=== PATIENT | male | born 1965 | race Caucasian/White ===

== ENCOUNTER 2017-07-14 09:02 | Emergency (ER) | payer OTHER ==
[2017-07-14 09:07] VITALS: BMI 34.2
[2017-07-14] MEDS ORDERED: methylPREDNISolone NA SUCC 125 MG/2 ML VIAL IVPB ONE (10:02)
--- NOTE | 2017-07-14 10:17 | PDOC ---
History of Present Illness - General History Source: Patient Exam Limitations: No Limitations - History of Present Illness Initial Comments: 07/14/17 11:42 The patient is a 52 year old male with a significant PMH of chronic bronchitis, diverticulitis, chronic lower back pain who presents to the emergency department with shortness of breath and cough beginning approximately 1 week ago which worsened this morning. He reports being evaluated at [facility] last week with flu-like symptoms and SOB and was discharged after a Prednisone treatment to some relief. He reports going to work this morning and having increased shortness of breath, which is aggravated by inspiration and minimal exertion, cough, and nausea. He describes his cough as productive of clear sputum. He reports his shortness of breath is similar to his previous bronchitis exacerbations. The patient denies chest pain and dizziness. Denies fever, chills, vomit, diarrhea and constipation. Denies dysuria, frequency, urgency and hematuria. Denies weakness/numbness Allergies: NKDA Family history: Father has extensive cardiac history. Mother of lung CA. Past surgical history: Cholecystectomy. Social history: Occasional alcohol use. No reported cigarette or drug use. PCP: None reported. <Guillermo Novoa - Last Filed: 07/14/17 11:51> <Wen Brooks - Last Filed: 07/14/17 12:57> - General Chief Complaint: Shortness of Breath Stated Complaint: SOB Time Seen by Provider: 07/14/17 09:12 Past History <Guillermo Novoa - Last Filed: 07/14/17 11:51> - Past Medical History COPD: No GI Disorders: Yes (diverticulitis) - Surgical History Cholecystectomy: Yes - Immunization History Immunization Up to Date: Yes - Suicide/Smoking/Psychosocial Hx Smoking Status: No Smoking History: Never smoked Have you smoked in the past 12 months: No Number of Cigarettes Smoked Daily: 0 Hx Alcohol Use: Yes (OCCASIONALLY) Drug/Substance Use Hx: No Substance Use Type: Alcohol Hx Substance Use Treatment: No <Wen Brooks - Last Filed: 07/14/17 12:57> - Past Medical History Allergies/Adverse Reactions: Allergies Allergy/AdvReac Type Severity Reaction Status Date / Time No Known Allergies Allergy Verified 07/14/17 09:07 Home Medications: Ambulatory Orders Oxycodone HCl/Acetaminophen [Percocet 5-325 mg Tablet] 1 tab PO Q6H #6 tablet MDD 6 01/08/16 Review of Systems - Review of Systems Able to Perform ROS?: Yes Comments:: 07/14/17 11:52 GENERAL/CONSTITUTIONAL: No fever or chills. No weakness. HEAD, EYES, EARS, NOSE AND THROAT: No change in vision. No ear pain or discharge. No sore throat. GASTROINTESTINAL: (+) Nausea. No vomiting, diarrhea or constipation. GENITOURINARY: No dysuria, frequency, or change in urination. CARDIOVASCULAR: (+) Shortness of breath. No chest pain RESPIRATORY: (+) Productive cough. No hemoptysis. MUSCULOSKELETAL: No joint pain. No neck pain. SKIN: No rash NEUROLOGIC: No headache, vertigo, loss of consciousness, or change in strength/ sensation. ENDOCRINE: No increased thirst. No abnormal weight change. HEMATOLOGIC/LYMPHATIC: No anemia, easy bleeding, or history of blood clots. ALLERGIC/IMMUNOLOGIC: No hives or skin allergy. <Guillermo Novoa - Last Filed: 07/14/17 11:51> *Physical Exam - Vital Signs Last Vital Signs Temp Pulse Resp BP Pulse Ox 97.7 F 94 H 20 134/73 98 07/14/17 09:04 07/14/17 09:04 07/14/17 09:04 07/14/17 09:04 07/14/17 09:04 - Physical Exam Comments: 07/14/17 11:52 GENERAL: Awake, alert, and fully oriented, in no acute distress HEAD: No signs of trauma EYES: PERRLA, EOMI, sclera anicteric, conjunctiva clear ENT: Auricles normal inspection, hearing grossly normal, nares patent, oropharynx clear without exudates. Moist mucosa NECK: Normal ROM, supple, no lymphadenopathy, JVD, or masses LUNGS: diffuse wheezing with good air movement, and no crackles HEART: Regular rate and rhythm, normal S1 and S2, no murmurs, rubs or gallops ABDOMEN: Soft, nontender, normoactive bowel sounds. No guarding, no rebound. No masses EXTREMITIES: Normal range of motion, no edema. No clubbing or cyanosis. No cords , erythema, or tenderness BACK: No midline spinal tenderness in cervical/thoracic/lumbar region NEUROLOGICAL: Normal speech, cranial nerves intact, negative pronator drift, 5/ 5 strength in all 4 extremities, normal sensation to light touch in all 4 extremities, normal cerebellar exam, normal gait, normal reflexes and tone SKIN: Warm, Dry, normal turgor, no rashes or lesions noted. <Guillermo Novoa - Last Filed: 07/14/17 11:51> - Vital Signs Last Vital Signs Temp Pulse Resp BP Pulse Ox 97.7 F 94 H 20 134/73 98 07/14/17 09:04 07/14/17 09:04 07/14/17 09:04 07/14/17 09:04 07/14/17 09:04 <Wen Brooks - Last Filed: 07/14/17 12:57> Heart Score/ECG Review #1 07/14/17 11:36 Twelve-lead EKG was performed and reviewed by me. Normal sinus rhythm, rate 99. Normal axis and intervals. No ST elevations. Biphasic T waves in lead V5 through V6 <Wen Brooks - Last Filed: 07/14/17 12:57> ED Treatment Course - LABORATORY CBC & Chemistry Diagram: 07/14/17 10:35 07/14/17 10:35 - ADDITIONAL ORDERS Additional order review: 07/14/17 10:35 RBC 5.15 MCV 89.9 MCHC 33.5 RDW 13.2 MPV 9.7 Neutrophils % 87.0 H Lymphocytes % 9.4 D Monocytes % 3.3 L Eosinophils % 0.0 D Basophils % 0.3 - Medications Given in the ED: ED Medications Discontinued Medications Generic Name Dose Route Start Last Admin Trade Name Luis Angel PRN Reason Stop Dose Admin Albuterol/Ipratropium 1 amp 07/14/17 10:15 07/14/17 11:19 Duoneb - NEB 07/14/17 11:01 1 amp Q15M LORIN Administration Methylprednisolone Sodium Succinate 125 mg 07/14/17 10:02 07/14/17 10:42 Solu-Medrol - IVPB 07/14/17 10:03 125 mg ONCE ONE Administration <Guillermo Novoa - Last Filed: 07/14/17 11:51> - LABORATORY CBC & Chemistry Diagram: 07/14/17 10:35 07/14/17 10:35 - RADIOLOGY Radiology Studies Ordered: Category Date Time Status CHEST PA & LAT [RAD] Stat Radiology 07/14/17 09:45 Ordered <Wen Brooks - Last Filed: 07/14/17 12:57> Medical Decision Making - Medical Decision Making 07/14/17 10:17 52-year-old male with a history of bronchitis presents emergency Department with shortness of breath, dry cough stating this is similar to his previous bronchitis exacerbations. Vitals are unremarkable. Exam with diffuse wheezing and good air movement. No increased WOB. Pt was on 40mg prednisone daily last week for similar sxs, had an improvement in sxs and now sxs have returned. Likely bronchitis exacerbation given recent cold sxs and wheezing. Unlikely PE as pt is HDS, not hypoxic with no recent immobility or surgery. WiIl obtain CXR , and get labs including trop/BNP to eval for ACS or CHF. Will also give duonnebs, steroids and reassess 07/14/17 12:50 Pt feels much better post nebs, steroids, dose of azithro. Lungs are clear, sat 99% RA. Will DC with script for prednisone, pt to f/u with PMD tomorrow. I discussed the physical exam findings, ancillary test results and final diagnoses with the patient. I answered all of the patient's questions. The patient was satisfied with the care received and felt comfortable with the discharge plan and treatment plan. The patient will call their primary care physician within 24 hours to arrange follow-up and will return to the Emergency Department with any new, persistent or worsening symptoms. <Wen Brooks - Last Filed: 07/14/17 12:57> *DC/Admit/Observation/Transfer - Attestations Scribe Attestion: 07/14/17 11:52 Documentation prepared by Guillermo Novoa, acting as medical insurance coder for Wen Brooks MD. <Guillermo Novoa - Last Filed: 07/14/17 11:51> - Discharge Dispostion Admit: No - Attestations Physician Attestion: 07/14/17 12:57 I, Dr. Wen Brooks MD, attest that this document has been prepared under my direction and personally reviewed by me in its entirety. I further attest, that it accurately reflects all work, treatment, procedures and medical decision -making performed by me. <Wen Brooks - Last Filed: 07/14/17 12:57> Diagnosis at time of Disposition: Bronchitis - Discharge Dispostion Disposition: HOME Condition at time of disposition: Stable - Referrals Referrals: Van Dailey MD [Non Staff, Medical] - - Patient Instructions Printed Discharge Instructions: DI for Acute Bronchitis Additional Instructions: Take the steroids as prescribed. As discussed, follow-up with your primary care doctor tomorrow. Return to the emergency department if you have any new, worsening or concerning symptoms. - Post Discharge Activity Forms/Work/School Notes: Back to Work
[2017-07-14] MEDS ORDERED: ALBUTEROL SO4 2.5/IPRATROPIUM 0.5 INH SOL 3 ML VIAL.NEB. NEB ONE (10:33)
[2017-07-14] MEDS ORDERED: methylPREDNISolone NA SUCC 125 MG/2 ML VIAL ONE (10:33)
[2017-07-14] MEDS: ALBUTEROL SO4 2.5/IPRATROPIUM 0.5 INH SOL 3 ML VIAL.NEB. NEB SCH ×3 (10:42→11:19)
[2017-07-14 10:46] LABS: BASO % 0.3 % (0-2.0); HEMATOCRIT 46.3 % (35.4-49); HEMOGLOBIN 15.5 GM/dL (11.7-16.9); LYMPH % 9.4 % (8-40); MCH 30.1 pg (25.7-33.7); MCHC 33.5 g/dl (32.0-35.9); MEAN CELL VOLUME 89.9 fl (80-96); MEAN PLT VOLUME 9.7 fl (7.5-11.1); MONO % 3.3 % (3.8-10.2); PLATELET COUNT 245 K/MM3 (134-434); RBC 5.15 M/mm3 (4.00-5.60); RDW 13.2 % (11.9-15.9); WHITE BLOOD COUNT 12.4 K/mm3 (4.0-10.0)
[2017-07-14 11:12] LABS: ALBUMIN 4.2 g/dl (3.4-5.0); ANION GAP 7 (8-16); BLOOD UREA NITROGEN 15 mg/dL (7-18); CALCIUM 8.7 mg/dL (8.5-10.1); CHLORIDE 103 mmol/L (98-107); CO2 29 mmol/L (21-32); CREATININE 0.9 mg/dL (0.7-1.3); GLUCOSE,RANDOM 107 mg/dL (74-106); MAGNESIUM 2.4 mg/dL (1.8-2.4); POTASSIUM 4.2 mmol/L (3.5-5.1); SGOT/AST 18 U/L (15-37); SGPT/ALT 49 U/L (12-78); SODIUM 139 mmol/L (136-145); TOT PROT 7.6 g/dl (6.4-8.2)
[2017-07-14 11:15] LABS: ALK PHOS 83 U/L (45-117); N-TERMINAL BNP 72.79 pg/ml (5-125)
[2017-07-14] MEDS ORDERED: AZITHROMYCIN IVPB 500 MG in DEXTROSE 5%-WATER - 250 ML IVPB ONE (12:36)
[2017-07-14] MEDS ORDERED: AZITHROMYCIN IVPB 250 ML IVPB ONE (12:45)
[2017-07-14 13:55] VITALS: BP 136/80; PULSE 88; TEMP 97.4
== END 2017-07-14 14:06 | disposition home or self-care (01) ==
LOC: JER 09:02
PROC: 3E0F7GC Introduction of Other Therapeutic Substance into Respiratory Tract, Via Natural or Artificial Opening (ICD-10-PCS; principal; 2017-07-14)
PROC: 3E03329 Introduction of Other Anti-infective into Peripheral Vein, Percutaneous Approach (ICD-10-PCS; 2017-07-14)
PROC: 3E0333Z Introduction of Anti-inflammatory into Peripheral Vein, Percutaneous Approach (ICD-10-PCS; 2017-07-14)
DX: J40 Bronchitis, not specified as acute or chronic (principal)
CPT/HCPCS: 36415; 71046-TC-FY; 80053; 83735; 83880; 84484; 85025; 99283-25

== ENCOUNTER 2017-07-29 14:17 | Emergency (ER) | payer OTHER ==
[2017-07-29 14:26] VITALS: BP 119/84; PULSE 100; TEMP 97.6; BMI 34.2
--- NOTE | 2017-07-29 14:27 | PDOC ---
Rapid Medical Evaluation Chief Complaint: Back Pain Medical Evaluation: Allergies Allergy/AdvReac Type Severity Reaction Status Date / Time No Known Allergies Allergy Verified 07/29/17 14:21 07/29/17 14:22 The patient presents with a chief complaint of: [Low back pain for two weeks. Was seen by PMD xray is negative of lumbar spine, on flexaril] I have performed a brief in-person evaluation of this patient. Pertinent physical exam findings: vss, [Low back pain, Spasm, generalized back , ] I have ordered the following: [None] The patient will proceed to the ED for further evaluation. Discharge Disposition - Diagnosis Lower back pain Qualifiers: Chronicity: acute Back pain laterality: bilateral Sciatica presence: without sciatica Qualified Code(s): M54.5 - Low back pain - Referrals Referrals: Van Dailey MD [Primary Care Provider] - - Patient Instructions - Post Discharge Activity
--- NOTE | 2017-07-29 15:05 | PDOC ---
History of Present Illness - General Chief Complaint: Back Pain Stated Complaint: LOWER BACK PAIN Time Seen by Provider: 07/29/17 14:31 History Source: Patient Exam Limitations: No Limitations - History of Present Illness Initial Comments: 07/29/17 16:09 Patient is a 52-year-old male with past medical history of back pain, who presents emergency department today with worsening back spasm. Patient states that he went to his primary care doctor earlier this week due to the pain. He states that they took an x-ray at an outpatient clinic which he said was normal. He was given Flexeril and he has been taking the medication as prescribed. He has had no relief with the Flexeril. Denies trauma at this time. He rates the pain an 8 out of 10 and states that it radiates up his back. Denies pain down the legs, numbness and tingling, saddle anesthesia, bladder or bowel incontinence, fevers. Past History - Past Medical History Allergies/Adverse Reactions: Allergies Allergy/AdvReac Type Severity Reaction Status Date / Time No Known Allergies Allergy Verified 07/29/17 14:21 Home Medications: Ambulatory Orders Albuterol Sulfate Inhaler - [Ventolin HFA Inhaler -] 1 - 2 inh PO Q4H #1 inhaler 07/29/17 Cetirizine HCl [Zyrtec -] 10 mg PO DAILY 07/29/17 Cyclobenzaprine HCl [Flexeril -] 10 mg PO TID 07/29/17 Diazepam [Valium] 5 mg PO HS #7 tablet MDD 1 07/29/17 Ibuprofen 800 mg PO TID #30 tablet 07/29/17 COPD: No GI Disorders: Yes (diverticulitis) - Surgical History Cholecystectomy: Yes - Immunization History Immunization Up to Date: Yes - Suicide/Smoking/Psychosocial Hx Smoking Status: No Smoking History: Never smoked Have you smoked in the past 12 months: No Number of Cigarettes Smoked Daily: 0 Information on smoking cessation initiated: No Hx Alcohol Use: No Drug/Substance Use Hx: No Substance Use Type: Alcohol Hx Substance Use Treatment: No Review of Systems - Review of Systems Able to Perform ROS?: Yes Comments:: 07/29/17 15:55 CONSTITUTIONAL: Absent: fever, chills, diaphoresis, generalized weakness, malaise, loss of appetite HEENT: Absent: rhinorrhea, nasal congestion, throat pain, throat swelling, difficulty swallowing, mouth swelling, ear pain, eye pain, visual Changes CARDIOVASCULAR: Absent: chest pain, loss of consciousness, palpitations, irregular heart rate, peripheral edema RESPIRATORY: Absent: cough, shortness of breath, dyspnea with exertion, orthopnea, wheezing, stridor, hemoptysis GASTROINTESTINAL: Absent: abdominal pain, abdominal distension, nausea, vomiting, diarrhea, constipation, melena, hematochezia GENITOURINARY: Absent: dysuria, frequency, urgency, hesitancy, hematuria, flank pain, genital pain MUSCULOSKELETAL: Absent: myalgia, arthralgia, joint swelling SKIN: Absent: rash, itching, pallor HEMATOLOGIC/IMMUNOLOGIC: Absent: easy bleeding, easy bruising, lymphadenopathy, frequent infections ENDOCRINE: Absent: unexplained weight gain, unexplained weight loss, heat intolerance, cold intolerance NEUROLOGIC: Absent: headache, focal weakness or paresthesias, dizziness, unsteady gait, seizure, mental status changes, bladder or bowel incontinence PSYCHIATRIC: Absent: anxiety, depression, suicidal or homicidal ideation, hallucinations. Is the patient limited Telugu proficient: No *Physical Exam - Vital Signs Last Vital Signs Temp Pulse Resp BP Pulse Ox 97.6 F 100 H 16 119/84 99 07/29/17 14:21 07/29/17 14:21 07/29/17 14:21 07/29/17 14:21 07/29/17 14:21 - Physical Exam Comments: 07/29/17 15:55 GENERAL: Well developed, well nourished. Awake and alert. No acute distress. HEENT: Normocephalic, atraumatic. PERRLA, EOMI. No conjunctival pallor. Sclera are non- icteric. Moist mucous membranes. Oropharynx is clear. NECK: Supple. Full ROM. No JVD. Carotid pulses 2+ and symmetric, without bruits. No thyromegaly. No lymphadenopathy. CARDIOVASCULAR: Regular rate and rhythm. No murmurs, rubs, or gallops. Distal pulses are 2+ and symmetric. PULMONARY: No evidence of respiratory distress. Lungs clear to auscultation bilaterally. No wheezing, rales or rhonchi. ABDOMINAL: Soft. Non-tender. Non-distended. No rebound or guarding. No organomegaly. Normoactive bowel sounds. MUSCULOSKELETAL Normal range of motion at all joints. No bony deformities or tenderness. No CVA tenderness. EXTREMITIES: No cyanosis. No clubbing. No edema. No calf tenderness. SKIN: Warm and dry. Normal capillary refill. No rashes. No jaundice. NEUROLOGICAL: Alert, awake, appropriate. Cranial nerves 2-12 intact. No deficits to light touch and temperature in face, upper extremities and lower extremities. No motor deficits in the in face, upper extremities and lower extremities. Normoreflexic in the upper and lower extremities. Normal speech. Toes are down- going bilaterally. Gait is normal without ataxia. PSYCHIATRIC: Cooperative. Good eye contact. Appropriate mood and affect. Medical Decision Making - Medical Decision Making 07/29/17 15:55 Patient is a 52-year-old male with past medical history of back pain, who presents emergency department today with worsening back spasm. Patient was recently seen by his primary care doctor had an x-ray done which was normal. No neurological deficits today on exam. Strength is intact bilaterally. No red flags on history. We'll treat low back pain at this time and refer patient to orthopedics for further management. Patient understands all discharge instructions and all questions were answered. Return precautions given. *DC/Admit/Observation/Transfer Diagnosis at time of Disposition: Lower back pain Qualifiers: Chronicity: acute Back pain laterality: bilateral Sciatica presence: without sciatica Qualified Code(s): M54.5 - Low back pain - Discharge Dispostion Condition at time of disposition: Stable Admit: No - Prescriptions Prescriptions: Albuterol Sulfate Inhaler - [Ventolin HFA Inhaler -] 1 - 2 inh PO Q4H #1 inhaler Diazepam [Valium] 5 mg PO HS #7 tablet MDD 1 Ibuprofen 800 mg PO TID #30 tablet - Referrals Referrals: Van Dailey MD [Primary Care Provider] - Luc Polanco MD [Staff Physician] - Mac Herrera MD [Staff Physician] - Kristyn Medrano MD [Staff Physician] - - Patient Instructions Printed Discharge Instructions: DI for Low Back Pain Additional Instructions: You have low back pain due to a muscle spasm. Please take ibuprofen 800 mg 3 times a day not to exceed 3000 mg a day. You were also prescribed valium. Take the medication before you go to bed. Do not drive after taking this medication as it may make you sleepy. You may use warm compresses on your back to help with your symptoms. Please follow-up with your primary care doctor. If your symptoms do not resolve in 3-5 days, follow-up with orthopedics. A referral has been provided for you (Sherri/Javier). You were also prescribed an inhaler today. Return to the emergency department if you have worsening back pain, bladder or bowel incontinence, numbness and tingling in her legs, changes in the way you walk, or any new or worsening symptoms. - Post Discharge Activity Forms/Work/School Notes: Back to Work
[2017-07-29] MEDS ORDERED: KETOROLAC TROMETHAMINE 60 MG/2 ML VIAL ONE (15:29)
[2017-07-29] MEDS ORDERED: KETOROLAC TROMETHAMINE 60 MG/2 ML VIAL IM ONE (15:36)
== END 2017-07-29 15:56 | disposition home or self-care (01) ==
LOC: JERFT 14:17
PROC: 3E0233Z Introduction of Anti-inflammatory into Muscle, Percutaneous Approach (ICD-10-PCS; principal; 2017-07-29)
DX: M54.5 Low back pain (principal)
CPT/HCPCS: 99281-25

== ENCOUNTER 2017-11-29 16:59 | Inpatient (IN) | payer OTHER ==
--- NOTE | 2017-11-29 17:09 | PDOC ---
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 Pain started acutely 2 hours after dinner, was initially intermittent but is now constant. Diffuse, sharp, 10/10. Endorses constipation (two BM since symptom onset, usually has daily BM) and subjective fever. Denies any rectal bleeding, emesis, dysuria/hematuria, testicular/penile pain. Tolerating PO intake, however notes decreased appetite 2/2 to symptoms. OTC Ibuprofen has offered minimal relief prompting his visit to the ED. NKDA Surgical: cholecystectomy, tonsillectomy PMD: none- will refer to IM resident clinic Past History - Past Medical History Allergies/Adverse Reactions: Allergies Allergy/AdvReac Type Severity Reaction Status Date / Time No Known Allergies Allergy Verified 11/29/17 17:05 Home Medications: Ambulatory Orders Hydrocodone/Acetaminophen [Vicodin Es 7.5-300 mg Tablet] 7.5 - 325 mg PO Q4H 02/10 Ibuprofen [Motrin -] 800 mg PO PRN 12/01/17 Metaxalone [Metaxall] 800 mg PO DAILY 12/01/17 COPD: No GI Disorders: Yes (diverticulitis) Other medical history: lower back herniated disc - Surgical History Cholecystectomy: Yes - Immunization History Immunization Up to Date: Yes - Suicide/Smoking/Psychosocial Hx Smoking Status: No Smoking History: Never smoked Have you smoked in the past 12 months: No Number of Cigarettes Smoked Daily: 0 Hx Alcohol Use: No Drug/Substance Use Hx: No Substance Use Type: Alcohol Hx Substance Use Treatment: No Review of Systems - Review of Systems Constitutional: Yes: Fever. No: Chills Respiratory: No: Cough, Shortness of Breath Cardiac (ROS): No: Chest Pain, Lightheadedness, Palpitations, Syncope ABD/GI: Yes: Constipated, Nausea, Abdominal cramping. No: Diarrhea, Vomiting, Tarry Stools : No: Burning, Dysuria Musculoskeletal: Yes: Back Pain *Physical Exam - Vital Signs Last Vital Signs Temp Pulse Resp BP Pulse Ox 98 F 128 H 20 133/73 99 11/29/17 17:02 11/29/17 17:02 11/29/17 17:02 11/29/17 17:02 11/29/17 17:02 - Physical Exam General Appearance: Yes: Nourished, Appropriately Dressed HEENT: positive: Normal Voice, Hearing Grossly Normal Neck: positive: Trachea midline, Supple Respiratory/Chest: positive: Lungs Clear, Normal Breath Sounds. negative: Accessory Muscle Use, Labored Respiration, Rapid RR, Crackles, Rales, Wheezing Cardiovascular: positive: S1, S2, Tachycardia. negative: Edema, JVD Gastrointestinal/Abdominal: positive: Other (diffuse abdominal TTP, reducible umbilical hernia, B/L LQ guarding, no rebound) Musculoskeletal: negative: CVA Tenderness (R), CVA Tenderness (L) Extremity: positive: Normal Capillary Refill, Normal Inspection Integumentary: positive: Normal Color, Warm, Diaphoresis Neurologic: positive: Fully Oriented, Alert ED Treatment Course - LABORATORY CBC & Chemistry Diagram: 12/03/17 06:30 12/03/17 06:30 Medical Decision Making - Medical Decision Making 11/29/17 18:05 52 year old male presents to the ED with progressively worsening abdominal pain. Intermittently tachycardic, other VS unremarkable. PE significant for diffuse abdominal tenderness with some peritoneal signs (B/L LQ guarding). Clinical suspicion for acute abdomen including diverticulitis, cholecystitis, SBO (less likely - h/o BM). Will obtain CT abdomen as well as basic labs, Lipase, Latic Acid. General surgery (Dr. Jacobs) in ED, will curbside consult. Pain control with Morphine. IV fluids. Will monitor closely - tachycardia likely 2/2 to pain. Reassess. Patient signed out to Dr. Lundberg (Resident) and under the care of Dr. Hurd ( Attending) *DC/Admit/Observation/Transfer Diagnosis at time of Disposition: Diverticulitis large intestine Qualifiers: Diverticulitis complication: with perforation - Discharge Dispostion Condition at time of disposition: Guarded - Referrals - Patient Instructions - Post Discharge Activity
--- NOTE | 2017-11-29 17:30 | PDOC ---
Attending Attestation - HPI HPI: 11/29/17 19:00 The patient is a 52 year old male with a significant PMH of diverticulitis who presents to the emergency department for evaluation of worsening lower abdominal pain and vomiting beginning approximately 5 days ago. He describes his abdominal pain as a diffuse sensation with associated constipation, as he reports about 2 BMs within the past week. The patient denies fevers or chills. The patient denies chest pain or shortness of breath. Allergies: NKA PCP: None reported. <Guillermo Novoa - Last Filed: 11/29/17 19:00> - Resident Resident Name: Radha Connolly - ED Attending Attestation I have performed the following: I have examined & evaluated the patient, The case was reviewed & discussed with the resident, I agree w/resident's findings & plan, Exceptions are as noted - HPI HPI: - Physicial Exam PE: 11/29/17 20:43 pt is awake and alert x 3 RRR CTA bilaterally Abd is distended, soft, tender to palpation diffusely, worse in the LLQ No lower extremity edema - Medical Decision Making 11/29/17 17:29 EKG:Sinus Tachycardia, rate of 113 bpm, axis nml, intervals nml, no st elevations or depressions, T waves inverted II, aVF, v4-v6 11/29/17 21:09 Laboratory Tests 11/29/17 11/29/17 17:53 17:53 WBC 13.1 H Hgb 14.6 Hct 42.3 Plt Count 210 Neutrophils % 83.4 H Sodium 138 Potassium 3.8 Chloride 104 Carbon Dioxide 25 BUN 20 H Creatinine 1.1 Total Bilirubin 3.3 H AST 51 H D ALT 88 H D Lipase [address] Pt was in severe pain given morphine CT demonstrates diverticulitis with micro perf Pt Fluid resuscitated Zosyn ordered Surgery consulted Dr Jacobs present in the ER to see this patient Clinical impression: complicated diverticulitis, initial presentation <Lalita Hurd - Last Filed: 12/03/17 10:15>
[2017-11-29] MEDS ORDERED: SODIUM CHLORIDE 0.9% 500 ML INFUS.BAG IV ONE (17:43)
[2017-11-29] MEDS ORDERED: ONDANSETRON 4 MG/2 ML VIAL IVPUSH ONE (17:47)
[2017-11-29] MEDS ORDERED: ONDANSETRON 4 MG/2 ML VIAL ONE (18:03)
[2017-11-29] MEDS ORDERED: morphine CARPU-JECT 4 MG/1 ML DISP.SYRIN IVPUSH ONE ×2 (18:05→22:13)
[2017-11-29] MEDS ORDERED: morphine SULFATE 4 MG/ML VIAL ONE ×2 (18:09→22:21)
[2017-11-29 18:10] LABS: BASO % 0.4 % (0-2.0); EOS % 0.2 % (0-4.5); HEMATOCRIT 42.3 % (35.4-49); HEMOGLOBIN 14.6 GM/dL (11.7-16.9); LYMPH % 6.9 % (8-40); MCH 30.5 pg (25.7-33.7); MCHC 34.5 g/dl (32.0-35.9); MEAN CELL VOLUME 88.4 fl (80-96); MEAN PLT VOLUME 10.3 fl (7.5-11.1); MONO % 9.1 % (3.8-10.2); NEUT % 83.4 % (42.8-82.8); PLATELET COUNT 210 K/MM3 (134-434); RBC 4.78 M/mm3 (4.00-5.60); RDW 12.4 % (11.9-15.9); WHITE BLOOD COUNT 13.1 K/mm3 (4.0-10.0)
[2017-11-29] MEDS ORDERED: MORPHINE SULFATE 2 MG/ML VIAL ONE (18:10)
[2017-11-29 18:31] LABS: ALBUMIN 3.5 g/dl (3.4-5.0); ALK PHOS 116 U/L (45-117); ANION GAP 9 (8-16); BILIRUBIN,TOTAL 3.3 mg/dL (0.2-1.0); BLOOD UREA NITROGEN 20 mg/dL (7-18); CALCIUM 8.6 mg/dL (8.5-10.1); CHLORIDE 104 mmol/L (98-107); CO2 25 mmol/L (21-32); CREATININE 1.1 mg/dL (0.7-1.3); GLUCOSE,RANDOM 102 mg/dL (74-106); LIPASE 77 U/L (73-393); POTASSIUM 3.8 mmol/L (3.5-5.1); SGOT/AST 51 U/L (15-37); SGPT/ALT 88 U/L (12-78); SODIUM 138 mmol/L (136-145); TOT PROT 7.2 g/dl (6.4-8.2)
[2017-11-29] MEDS ORDERED: SODIUM CHLORIDE 1,000 ML IV STA (22:01)
[2017-11-29] MEDS ORDERED: IBUPROFEN 800 MG/8 ML IJ IVPB ONE ×2 (22:17→22:19)
[2017-11-29] MEDS ORDERED: PIPERACILLIN/TAZOB 3.375 GM 3.375 GM in DEXTROSE 5%-WATER - 50 ML IVPB ONE (22:25)
[2017-11-29] MEDS ORDERED: PIPERACILLIN/TAZOB 4.5 GM 4.5 GM in DEXTROSE 5%-WATER 100 ML IVPB ONE (22:35)
[2017-11-29] MEDS ORDERED: PIPERACILLIN/TAZOB 4.5 GM 4.5 GM/100 ML BAG IVPB ONE (22:51)
[2017-11-29 23:35] LABS: BASO % 0.7 % (0-2.0); EOS % 0.2 % (0-4.5); HEMATOCRIT 38.8 % (35.4-49); HEMOGLOBIN 13.2 GM/dL (11.7-16.9); LYMPH % 7.2 % (8-40); MCH 30.1 pg (25.7-33.7); MCHC 33.9 g/dl (32.0-35.9); MEAN CELL VOLUME 88.7 fl (80-96); MEAN PLT VOLUME 9.8 fl (7.5-11.1); MONO % 12.7 % (3.8-10.2); NEUT % 79.2 % (42.8-82.8); PLATELET COUNT 206 K/MM3 (134-434); RBC 4.38 M/mm3 (4.00-5.60); RDW 12.2 % (11.9-15.9); WHITE BLOOD COUNT 15.4 K/mm3 (4.0-10.0)
[2017-11-29 23:49] LABS: INR 1.39 (0.82-1.09); PROTHROMBIN TIME (PATIENT) 15.7 SEC (9.7-13.0)
[2017-11-29 23:52] LABS: ACTIVATED PTT 32.6 SECONDS (25.2-36.5)
[2017-11-29 23:59] LABS: ALBUMIN 3.1 g/dl (3.4-5.0); ANION GAP 7 (8-16); BILIRUBIN,TOTAL 2.7 mg/dL (0.2-1.0); BLOOD UREA NITROGEN 18 mg/dL (7-18); CHLORIDE 104 mmol/L (98-107); CO2 26 mmol/L (21-32); CREATININE 0.9 mg/dL (0.7-1.3); GLUCOSE,RANDOM 108 mg/dL (74-106); POTASSIUM 3.6 mmol/L (3.5-5.1); SGOT/AST 46 U/L (15-37); SGPT/ALT 79 U/L (12-78); SODIUM 137 mmol/L (136-145); TOT PROT 6.3 g/dl (6.4-8.2)
[2017-11-30] LABS: ALK PHOS 97 U/L (45-117)
[2017-11-30] MEDS ORDERED: SODIUM CHLORIDE 1,000 ML IV STA
--- NOTE | 2017-11-30 00:02 | PDOC ---
*Physical Exam - Vital Signs Last Vital Signs Temp Pulse Resp BP Pulse Ox 102.2 F H 80 18 100/69 99 11/29/17 22:34 11/29/17 22:34 11/29/17 22:34 11/29/17 22:34 11/29/17 22:34 ED Treatment Course - LABORATORY CBC & Chemistry Diagram: 11/29/17 23:25 11/29/17 17:53 - ADDITIONAL ORDERS Additional order review: Laboratory Results 11/29/17 11/29/17 11/29/17 23:25 18:10 17:53 PT with INR 15.70 H INR 1.39 H PTT (Actin FS) 32.6 Sodium 138 Potassium 3.8 Chloride 104 Carbon Dioxide 25 Anion Gap 9 BUN 20 H Creatinine 1.1 Creat Clearance w eGFR > 60 Random Glucose 102 Lactic Acid 1.3 Calcium 8.6 Total Bilirubin 3.3 H AST 51 H D ALT 88 H D Alkaline Phosphatase 116 Total Protein 7.2 Albumin 3.5 Lipase 77 11/29/17 11/29/17 23:25 17:53 RBC 4.38 4.78 MCV 88.7 88.4 MCHC 33.9 34.5 RDW 12.2 12.4 MPV 9.8 10.3 Neutrophils % 79.2 83.4 H Lymphocytes % 7.2 L 6.9 L D Monocytes % 12.7 H 9.1 D Eosinophils % 0.2 0.2 D Basophils % 0.7 0.4 - Medications Given in the ED: ED Medications Discontinued Medications Generic Name Dose Route Start Last Admin Trade Name Freq PRN Reason Stop Dose Admin Sodium Chloride 1,000 mls @ 1,000 mls/hr 11/29/17 22:01 11/29/17 22:09 Normal Saline - IV 11/29/17 23:00 1,000 mls/hr ASDIR STA Administration Piperacillin Sod/Tazobactam 50 mls @ 100 mls/hr 11/29/17 22:25 11/29/17 22:58 Sod 3.375 gm/ Dextrose IVPB 11/29/17 22:54 Not Given ONCE ONE Protocol Piperacillin Sod/Tazobactam 100 mls @ 200 mls/hr 11/29/17 22:35 11/29/17 22: 48 Sod 4.5 gm/ Dextrose IVPB 11/29/17 23:04 200 mls/hr ONCE ONE Administration Protocol Ibuprofen 800 mg 11/29/17 22:17 11/29/17 22:32 Caldolor Injection - IVPB 11/29/17 22:18 800 mg ONCE ONE Administration Morphine Sulfate 6 mg 11/29/17 18:05 11/29/17 18:07 Morphine Injection - IVPUSH 11/29/17 18:06 6 mg ONCE ONE Administration Morphine Sulfate 4 mg 11/29/17 22:13 11/29/17 22:33 Morphine Injection - IVPUSH 11/29/17 22:14 4 mg ONCE ONE Administration Ondansetron HCl 4 mg 11/29/17 17:47 11/29/17 17:54 Zofran Injection IVPUSH 11/29/17 17:48 4 mg ONCE ONE Administration Sodium Chloride 1,000 ml 11/29/17 17:43 11/29/17 17:53 Normal Saline - IV 11/29/17 17:44 1,000 ml ONCE ONE Administration *DC/Admit/Observation/Transfer Diagnosis at time of Disposition: Diverticulitis large intestine - Discharge Dispostion Condition at time of disposition: Guarded Decision to Admit order: Yes - Referrals - Patient Instructions - Post Discharge Activity
[2017-11-30] MEDS ORDERED: SODIUM CHLORIDE 1,000 ML IV SCH (00:15)
--- NOTE | 2017-11-30 00:15 | PN ---
Teaching Attending Note Name of Resident: Ziggy Jewell ATTENDING PHYSICIAN STATEMENT I saw and evaluated the patient. I reviewed the resident's note and discussed the case with the resident. I agree with the resident's findings and plan as documented. SUBJECTIVE: Patient is a 52 year old male with a significant PMH of diverticulitis who presents to the emergency department for evaluation of worsening lower abdominal pain and vomiting beginning approximately 5 days ago. He describes his abdominal pain as a diffuse sensation with associated constipation, as he reports about 2 BMs within the past week. The patient denies fevers or chills. This is his third bout of diverticulitis with the last episode being 5 years ago and it was managed conservatively. He has had cholecystectomy and had tonsillectomy as a child. His abdominal pain improved significantly while he was still in the ER. OBJECTIVE: Vital Signs Period Temp Pulse Resp BP Sys/Murillo Pulse Ox Last 24 Hr 98 F-102.2 F 80-128 16-20 100-133/69-73 98-99 HEENT: No Jaundice, eye redness or discharge, PERRLA, EOMI. Normocephalic, atraumatic. External ears are normal and hearing is grossly intact. No nasal discharge. Neck: Supple, nontender. No palpable adenopathy or thyromegaly. No JVD Chest: Good effort. Clear to auscultation and percussion. Heart: Regular. No S3, rub or murmur Abdomen: Not distended, soft, lower abdominal tenderness; no HSM. No rebound or guarding. Hyperactive bowel sounds. Ext: Peripheral pulses intact. No leg edema. Skin: Warm and dry. No petechiae, rash or ecchymosis. Neuro: Alert. Oriented x3. CN 2-12 grossly intact. Sensation grossly intact in all four extremities and DTR are symmetric. Current Medications Generic Name Dose Route Start Last Admin Trade Name Freq PRN Reason Stop Dose Admin Sodium Chloride 1,000 mls @ 1,000 mls/hr 11/30/17 00:00 Normal Saline - IV 11/30/17 00:59 ASDIR STA Sodium Chloride 1,000 mls @ 150 mls/hr 11/30/17 00:15 Normal Saline - IV ASDIR LORIN Home Medications Medication Instructions Recorded NK [No Known Home Medication] 11/29/17 Abnormal Lab Results 11/29/17 11/29/17 11/29/17 17:53 17:53 23:25 WBC 13.1 H Neutrophils % 83.4 H Lymphocytes % 6.9 L D Monocytes % PT with INR 15.70 H INR 1.39 H Anion Gap BUN 20 H Random Glucose Calcium Total Bilirubin 3.3 H AST 51 H D ALT 88 H D Total Protein Albumin 11/29/17 11/29/17 23:25 23:25 WBC 15.4 H Neutrophils % Lymphocytes % 7.2 L Monocytes % 12.7 H PT with INR INR Anion Gap 7 L BUN Random Glucose 108 H Calcium 8.0 L Total Bilirubin 2.7 H AST 46 H ALT 79 H Total Protein 6.3 L Albumin 3.1 L ASSESSMENT AND PLAN: 1. Sepsis due to Sigmoid Diverticulitis with small perforations - CT of the abdomen shows sigmoid diverticulitis and no abscess. Patient already got bolus IV NS and we will continue IV NS at 150 ml/hour as well as Zosyn 3.375 gm IV q 8 hours and IV morphine for pain control. EKG showed sinus tachycardia with no ST-T wave changes. Will consult Surgery and GI. 2. Elevated LFTs - Etiology unclear. May be related to sepsis. Will trend LFTs, get RUQ sonogram and hepatitis serology. 3. Prediabetes - Needs HbA1c to evaluate him for prediabetes. He is obese and on previous admissions he also had hyperglycemia. 4. DVT prophylaxis - Heparin 5000u sq tid. 5. Advance directives - Full code
--- NOTE | 2017-11-30 00:25 | CONSULT ---
Consult Consult Specialty:: General Surgery Referred by:: Ruy Lundberg Reason for Consultation:: diverticulitis with contained perforation - History of Present Illness Chief Complaint: lower abdominal pain, nausea, fever/chills, anorexia History of Present Illness: 52yo M s/p lap gael, with h/o diverticulitis in past, last episode 5 yrs ago treated conservatively with resolution and followed by colonoscopy, though pt does not remember details of who did it, where or what findings were. Friday, he began having lower abdominal pain, associated with nausea, fever and chills alternating, anorexia, and SOB at times with the heat. He thought it would get better, thought it might be reflux, but it has come and gone, persisting over the last 4 days, and getting worse. He has had F/C/sweating, headache at times, nausea but no vomiting, no urinary complaints, some diarrhea but no blood, has not eaten much of anything since Friday except some rice occasionally, water, Gatorade, and took 4 ibuprofen this morning without much effect. He finally realized it might be what he had before and came to ER. In ER, he has wbc 13.1, is somewhat dehydrated (has not urinated yet) with mildly elevated BUN/Cr, normal lactate 1.3, and CT shows sigmoid diverticulitis with contained perforation and no abscess, no obstruction, redundant sigmoid, no free air or fluid. He has been given IV fluids and made NPO, and got pain medication with good effect. He indicates suprapubic pain manageable but still present, notes chronic back pain with associated leg pains, and a chronic dry cough that has been more noticeable this week. He is diaphoretic, and is currently getting a second IV line with repeat labs and blood cultures prior to antibiotic administration. Surgery is asked to evaluate. He is seen in the ER with girlfriend at bedside. - History Source History Provided By: Patient Limitations to Obtaining History: No Limitations - Past Medical History Gastrointestinal: Yes: Diverticulitis (last episode 5 yrs ago treated conservatively), Hiatal Hernia, Other (small umbilical hernia) Musculoskeletal: Yes: Chronic low back pain, Other (with BLE pain (thighs) related to back pain) - Past Surgical History Past Surgical History: Yes: Cholecystectomy (laparoscopic), Colonoscopy (~4.5 yrs ago after diverticulitis - does not remember where/by whom), Tonsillectomy ( and adenoids as child) - Alcohol/Substance Use Hx Alcohol Use: Yes (occas/social - not for several months) History of Substance Use: reports: None - Smoking History Smoking history: Never smoked Have you smoked in the past 12 months: No - Social History ADL: Independent Home Medications - Allergies Allergies/Adverse Reactions: Allergies Allergy/AdvReac Type Severity Reaction Status Date / Time No Known Allergies Allergy Verified 11/29/17 17:05 - Home Medications Home Medications: Ambulatory Orders NK [No Known Home Medication] 11/29/17 Home Medications (free text): took 4 ibuprofen this am for pain; sometimes uses vitamins, fish oil, etc Family Disease History - Family Disease History Family Disease History: Heart Disease: Grandparent, Father (heart attack), CA: Mother (stg 4 lung CA (was smoker)) Other Family History: uncle with throat cancer (smoker) Review of Systems - Review of Systems Constitutional: reports: Chills, Diaphoresis, Fever, Loss of Appetite Eyes: reports: Other (glasses). denies: Recent Change in Vision HENT: denies: Difficult Swallowing, Hearing Loss, Nasal Congestion, Throat Pain Neck: denies: Swollen Glands, Tenderness Cardiovascular: denies: Chest Pain, Palpitations Respiratory: reports: Cough (chronic, dry), SOB (with hpi/related to heat/pain) Gastrointestinal: reports: Abdominal Pain (with hpi), Diarrhea (with hpi), Nausea (with hpi). denies: Constipation, Rectal Bleeding, Vomiting Genitourinary: denies: Burning, Dysuria Musculoskeletal: reports: Back Pain (lower and upper, chronic lower), Extremity Pain (BLE with back pain - gets pain in thighs). denies: Joint Swelling Integumentary: denies: Change in Color, Rash Neurological: reports: Headache, Unsteady Gait (sometimes walks with cane (back problems)). denies: Dizziness Psychiatric: reports: Depression (recent/stress-related). denies: Anxiety Physical Exam Vital Signs: Vital Signs Temperature 99.3 F 11/30/17 00:02 Pulse Rate 80 11/29/17 22:34 Respiratory Rate 18 11/29/17 22:34 Blood Pressure 100/69 11/29/17 22:34 O2 Sat by Pulse Oximetry (%) 99 11/29/17 22:34 Constitutional: Yes: No Distress, Calm, Diaphoresis, Obese Eyes: Yes: Conjunctiva Clear, EOM Intact. No: Sclera Icterus HENT: Yes: Atraumatic, Normocephalic Neck: Yes: Supple, Trachea Midline. No: Tenderness Cardiovascular: Yes: Tachycardia. No: Pulse Irregular Respiratory: Yes: Regular, CTA Bilaterally, Tachypnea (slight). No: Rhonchi, SOB, Wheezes Gastrointestinal: Yes: Soft, Abdomen, Obese, Hernia (small umbilical/incisional) , Hyperactive Bowel Sounds, Tenderness (suprapubic, bilateral lower quadrants with some voluntary guarding, no rebound). No: Tenderness, Epigastrium, Tenderness, Rebound ...Rectal Exam: Yes: Deferred Renal/: No: CVA Tenderness - Left, CVA Tenderness - Right Musculoskeletal: Yes: Back Pain (lumbar tenderness). No: Joint Swelling Extremities: No: Cool, Cyanosis Edema: No Peripheral Pulses WNL: Yes Integumentary: Yes: Tattoos, Other (warm, sweating). No: Jaundice (? possible faint ?), Rash Neurological: Yes: Alert, Oriented Psychiatric: Yes: Alert, Oriented Labs: CBC, BMP 11/29/17 23:25 11/29/17 23:25 CMP Sodium 137 mmol/L (136-145) 11/29/17 23:25 Potassium 3.6 mmol/L (3.5-5.1) 11/29/17 23:25 Chloride 104 mmol/L (98-107) 11/29/17 23:25 Carbon Dioxide 26 mmol/L (21-32) 11/29/17 23:25 Anion Gap 7 (8-16) L 11/29/17 23:25 BUN 18 mg/dL (7-18) 11/29/17 23:25 Creatinine 0.9 mg/dL (0.7-1.3) 11/29/17 23:25 Creat Clearance w eGFR > 60 (>60) 11/29/17 23:25 Random Glucose 108 mg/dL (74-106) H 11/29/17 23:25 Lactic Acid 1.3 mmol/L (0.0-2.0) 11/29/17 18:10 Calcium 8.0 mg/dL (8.5-10.1) L 11/29/17 23:25 Total Bilirubin 2.7 mg/dL (0.2-1.0) H 11/29/17 23:25 AST 46 U/L (15-37) H 11/29/17 23:25 ALT 79 U/L (12-78) H 11/29/17 23:25 Alkaline Phosphatase 97 U/L (45-117) D 11/29/17 23:25 Total Protein 6.3 g/dl (6.4-8.2) L 11/29/17 23:25 Albumin 3.1 g/dl (3.4-5.0) L 11/29/17 23:25 Lipase 77 U/L (73-393) 11/29/17 17:53 bili from 3.3 LFTs all down a bit lactate normal BUN/Cr improved with hydration WBC up from 13.1 Hb down a gram with hydration INR, PTT INR 1.39 (0.82-1.09) H 11/29/17 23:25 no urine yet Imaging - Results Cat Scan: Report Reviewed, Image Reviewed (images personally reviewed - sigmoid diverticulitis with contained perforation, few locules of air with inflammation , no susan abscess, no gross free air, no free fluid, no obstruction, no extravasation of contrast; absent gallbladder, no biliary ductal dilation) Problem List - Problems (1) Diverticulitis of large intestine with perforation without abscess or bleeding Assessment/Plan: admitted to medicine NPO/IVF - aggressive resuscitation until UOP adequate pain meds prn - morphine 4-6mg q3-4H prn GI/DVT prophylaxis IV Zosyn started in ER - continue with ID consult follow up blood cultures trend labs serial exams encourage OOB/ambulation as able IS for pulmonary toilet GI consultation - known to Dr. Gallego from 2013 inpatient stay discussed with patient potential need for urgent/emergent surgery in case of gross perforation, obstruction or bleeding: would need laparotomy with bowel resection, possible colostomy, possible diverting ileostomy; R/B/A include but are not limited to infection, bleeding, injury to adjacent structures, anastomotic leak, intraabdominal abscess, need for staged or further surgeries --- patient would like to avoid surgery acutely if possible agree with conservative measures for at least 24-48 hours, pending clinical course in case of free perforation, patient understands surgery would be indicated emergently will follow with you Code(s): K57.20 - DVTRCLI OF LG INT W PERFORATION AND ABSCESS W/O BLEEDING (2) Dehydration Assessment/Plan: fluid resuscitation Code(s): E86.0 - DEHYDRATION (3) Fever presenting with conditions classified elsewhere Assessment/Plan: would only treat >=101.5 Code(s): R50.81 - FEVER PRESENTING WITH CONDITIONS CLASSIFIED ELSEWHERE (4) Nausea Assessment/Plan: zofran prn, IV hydration Code(s): R11.0 - NAUSEA (5) Lower abdominal pain Assessment/Plan: see above, pain meds prn Code(s): R10.30 - LOWER ABDOMINAL PAIN, UNSPECIFIED Assessment/Plan Thank you for the opportunity to participate in the care of this patient.
--- NOTE | 2017-11-30 00:28 | PN ---
Physical Exam: CC: PCP: HPI: PMH: PSH: Social History: Family History: Allergy: Home Meds: None ROS: Constitutional: +fever, +chills, no loss of appetite, no weakness or weight change HEENT: No headache, nasal congestion, sore throat, ear pain, vision change Skin: No rash or lesion Cardiovascular: No chest pain or sob Pulmonary: No cough (dry or productive), colored sputum Endocrine: No polyuria, polydipsia, skin /hair changes, heat/cold intolerance. GI: no active abd pain, nausea , or vomiting : no constipation. No frequency, no urgency, +dysuria, no hematuria. MSK: No joint or muscle pain Psychology: No depression, anxiety, or insomnia. Physical Examination General: AAO x 3. able to speak full sentences, appropriate to stated age. Eyes: PERRLA ENT: Oropharynx clear with no lesions/erythema. Neck: Supple with no LAD or masses. Lymph Nodes: No cervical or inguinal LAD. Cardiovascular: Tachycardic, Regular rhythm, S1 and S2 normal, no m/g/r. Lungs: Decreased breath sounds in b/l base Abdomen: normal bowel sounds. NT.ND. no guarding/rebound Extremeties: No peripheral edema Imaging: A/P: HTN: cont. toprol XL but hold Triamterene-HCTZ DVT ppx: SCDs Dispo: cont. to observe on med-surg Ziggy Jewell Medicine PGY2 Pager: [phone]
--- NOTE | 2017-11-30 00:30 | HP ---
CC: abd pain PCP: none HPI: 52 yo M h/o recurrent diverticulitis presented to the ED with lower abd pain x 5 days. It started on Friday night all of sudden unrelated to food, from the lower part of abd, non-radiating, pressure like, intermittent, 7/10, a/w fever and chills, worse with sitting up or food. He can't remember what the last colonoscopy showed. Denies chest pain, shortness of breath, n/v, urinary sx , sick contact or travel. PMH:None PSH:cholecystectomy 5 yrs ago Social History: social drinker, denies tobacco or drug use Family History: mother has lung cancer, father of ID Allergy: NKDA Home Meds: None ROS: Constitutional: +fever, +chills, +loss of appetite, no weakness or weight change HEENT: No headache, nasal congestion, sore throat, ear pain, vision change Skin: No rash or lesion Cardiovascular: No chest pain or sob Pulmonary: No cough (dry or productive), colored sputum Endocrine: No polyuria, polydipsia, skin /hair changes, heat/cold intolerance. GI: +active abd pain, no nausea , or vomiting : no constipation. No frequency, no urgency, no dysuria, no hematuria. MSK: No joint or muscle pain Psychology: No depression, anxiety, or insomnia. Physical Examination Last Vital Signs Temp Pulse Resp BP Pulse Ox 99.3 F 80 18 100/69 99 11/30/17 00:02 11/29/17 22:34 11/29/17 22:34 11/29/17 22:34 11/29/17 22:34 General: AAO x 3. able to speak full sentences, appropriate to stated age. Eyes: PERRLA ENT: Oropharynx clear with no lesions/erythema. Neck: Supple with no LAD or masses. Lymph Nodes: No cervical or inguinal LAD. Cardiovascular: RRR, S1 and S2 normal, no m/g/r. Lungs: CTAB Abdomen: hyperactive bowel sounds. soft and obese. diffusely tender in lower abd. no guarding/rebound Extremities: No peripheral edema CBCD WBC 15.4 K/mm3 (4.0-10.0) H 11/29/17 23:25 RBC 4.38 M/mm3 (4.00-5.60) 11/29/17 23:25 Hgb 13.2 GM/dL (11.7-16.9) 11/29/17 23:25 Hct 38.8 % (35.4-49) 11/29/17 23:25 MCV 88.7 fl (80-96) 11/29/17 23:25 MCHC 33.9 g/dl (32.0-35.9) 11/29/17 23:25 RDW 12.2 % (11.9-15.9) 11/29/17 23:25 Plt Count 206 K/MM3 (134-434) 11/29/17 23:25 MPV 9.8 fl (7.5-11.1) 11/29/17 23:25 CMP Sodium 137 mmol/L (136-145) 11/29/17 23:25 Potassium 3.6 mmol/L (3.5-5.1) 11/29/17 23:25 Chloride 104 mmol/L (98-107) 11/29/17 23:25 Carbon Dioxide 26 mmol/L (21-32) 11/29/17 23:25 Anion Gap 7 (8-16) L 11/29/17 23:25 BUN 18 mg/dL (7-18) 11/29/17 23:25 Creatinine 0.9 mg/dL (0.7-1.3) 11/29/17 23:25 Creat Clearance w eGFR > 60 (>60) 11/29/17 23:25 Calcium 8.0 mg/dL (8.5-10.1) L 11/29/17 23:25 Total Bilirubin 2.7 mg/dL (0.2-1.0) H 11/29/17 23:25 AST 46 U/L (15-37) H 11/29/17 23:25 ALT 79 U/L (12-78) H 11/29/17 23:25 Alkaline Phosphatase 97 U/L (45-117) D 11/29/17 23:25 Total Protein 6.3 g/dl (6.4-8.2) L 11/29/17 23:25 Albumin 3.1 g/dl (3.4-5.0) L 11/29/17 23:25 Imaging: CT abd:moderate acute diverticulitis with small foci of pericolic air, consistent with small contained intestinal perforation. A/P: 52 yo M admitted for sepsis 2/2 recurrent diverticulitis. Sepsis 2/2 Diverticulitis with contained perforation - NPO - IVF, received 3L boluses and cont. standing NS 150cc/hr - Cont. zosyn 3.375mg Q6h - GI and surgery onboard - ID consult - Colonoscopy as outpatient Transaminitis - Likely reactive from sepsis and improving - Cont. to trend DVT ppx: heparin TID Dispo: cont. to monitor on med-surg Ziggy Jewell Medicine PGY3 Pager: [phone] Visit type - Emergency Visit Emergency Visit: Yes Care time: The patient presented to the Emergency Department on the above date and was hospitalized for further evaluation of their emergent condition. - New Patient This patient is new to me today: Yes Date on this admission: 11/30/17 - Critical Care Critical Care patient: No Hospitalist Screening - Colonoscopy Questionnaire Colonoscopy Questionnaire: Colonoscopy Questionnaire - Patient: 50 - 75 years old and never had a screening colonoscopy: Yes History of colon or rectal polyps, or CA: No History of IBD, Crohn's disease or UC: No History of abdominal radiation therapy as a child: No - Relative: 1 with colon or rectal CA, or polyps at age 60 or younger: No Colon or rectal CA diagnosed at age 45 or younger: No Multiple relatives with colon or rectal CA: No - Outcome: Screening Result: Positive Screen
[2017-11-30] MEDS ORDERED: ONDANSETRON 4 MG/2 ML VIAL IVPUSH PRN (00:54)
[2017-11-30] MEDS ORDERED: MORPHINE SULFATE 2 MG/ML VIAL IVPUSH PRN (00:54)
[2017-11-30] MEDS ORDERED: morphine SULFATE 4 MG/ML VIAL IVPUSH PRN (01:34)
[2017-11-30] MEDS ORDERED: SODIUM CHLORIDE 0.9%/KCL 20 MEQ/1,000 ML INFUS.BAG IV SCH (01:45)
[2017-11-30 03:44] LABS: URINE APPEARANCE CLEAR; URINE BILIRUBIN NEGATIVE (<2.0 mg/dL); URINE COLOR AMBER; URINE GLUCOSE (UA) NEGATIVE (NEGATIVE); URINE KETONE NEGATIVE (NEGATIVE); URINE LEUK ESTERASE NEGATIVE (NEGATIVE); URINE NITRITE NEGATIVE (NEGATIVE); URINE UROBILINOGEN 4.0 E.U/dl mg/dL (0.2-1.0)
[2017-11-30 03:47] VITALS: BMI 37.3
[2017-11-30 03:52] LABS: URINE PROTEIN 1+ (NEGATIVE)
[2017-11-30 04:01] LABS: EPI CELLS RARE /HPF (FEW); URINE MUCUS RARE
[2017-11-30] MEDS ORDERED: PIPERACILLIN/TAZOB 3.375 GM 3.375 GM in DEXTROSE 5%-WATER - 50 ML IVPB ONE (06:00)
[2017-11-30] MEDS: HEPARIN NA (PORCINE) 5,000 UNITS/ML 1ML VIAL SQ SCH ×3 (06:12→21:27)
[2017-11-30] MEDS ORDERED: PIPERACILLIN/TAZOB 4.5 GM 4.5 GM in DEXTROSE 5%-WATER 100 ML IVPB ONE (08:00)
[2017-11-30] MEDS ORDERED: DEXTROSE 5%-WATER 100 ML IVPB ONE ×2 (08:48→17:05)
[2017-11-30] MEDS ORDERED: PIPERACILLIN/TAZOBACTAM 4.5 GM VIAL IVPB ONE ×2 (08:48→17:05)
--- NOTE | 2017-11-30 10:09 | EKG ---
Test Reason : Blood Pressure : / mmHG Vent. Rate : 113 BPM Atrial Rate : 113 BPM P-R Int : 146 ms QRS Dur : 076 ms QT Int : 296 ms P-R-T Axes : 022 025 004 degrees QTc Int : 406 ms SINUS TACHYCARDIA POSSIBLE LEFT ATRIAL ENLARGEMENT NONSPECIFIC T WAVE ABNORMALITY ABNORMAL ECG WHEN COMPARED WITH ECG OF 05-OCT-2015 17:11, VENT. RATE HAS INCREASED BY [address] NO LONGER ELEVATED IN LATERAL LEADS NONSPECIFIC T WAVE ABNORMALITY NOW EVIDENT IN ANTEROLATERAL LEADS Confirmed by YAA CULVER MD ([id number]) on 11/30/2017 10:09:03 AM Referred By: Confirmed By:YAA CULVER MD
[2017-11-30 10:24] LABS: BASO % 0.2 % (0-2.0); EOS % 0.7 % (0-4.5); HEMATOCRIT 35.9 % (35.4-49); HEMOGLOBIN 12.1 GM/dL (11.7-16.9); LYMPH % 8.2 % (8-40); MCH 30.5 pg (25.7-33.7); MCHC 33.8 g/dl (32.0-35.9); MEAN CELL VOLUME 90.2 fl (80-96); MONO % 12.5 % (3.8-10.2); NEUT % 78.4 % (42.8-82.8); PLATELET COUNT 174 K/MM3 (134-434); RBC 3.98 M/mm3 (4.00-5.60); RDW 12.7 % (11.9-15.9); WHITE BLOOD COUNT 12.5 K/mm3 (4.0-10.0)
[2017-11-30 10:59] LABS: CHLORIDE 105 mmol/L (98-107); SODIUM 140 mmol/L (136-145)
[2017-11-30 11:10] LABS: ALBUMIN 2.7 g/dl (3.4-5.0); ALK PHOS 88 U/L (45-117); ANION GAP 7 (8-16); BILIRUBIN,TOTAL 2.4 mg/dL (0.2-1.0); BLOOD UREA NITROGEN 16 mg/dL (7-18); CALCIUM 7.9 mg/dL (8.5-10.1); CO2 28 mmol/L (21-32); CREATININE 0.8 mg/dL (0.7-1.3); GLUCOSE,RANDOM 79 mg/dL (74-106); MAGNESIUM 2.1 mg/dL (1.8-2.4); SGOT/AST 59 U/L (15-37); SGPT/ALT 71 U/L (12-78); TOT PROT 5.7 g/dl (6.4-8.2)
--- NOTE | 2017-11-30 11:21 | CON.ID ---
Consult Consult Specialty:: infectious diseases Referred by:: Reason for Consultation:: diverticulitis - History of Present Illness Chief Complaint: abd distension,and pain History of Present Illness: 52yo M s/p lap gael, with h/o diverticulitis in past, last episode 5 yrs ago treated conservatively with resolution and followed by colonoscopy patient on friday started having lower abd pain which was associated with fever chills and naueous feeling patient decided to wait it out and waited for 3-4 days but pain did not improve patient also took pain medications and had lost his appetite patient finally decided to come to the er where he was worked up and found to have diverticulitis and was admitted to the hospital for further mgmt his diverticulitis showed contained perf and also patient was spiking fever surgery evaluated the case and decided the plan was to do initial conservative mgmt and to see how the patient does currently patient continues to c/o of abd pain - History Source History Provided By: Patient Limitations to Obtaining History: No Limitations - Past Medical History Gastrointestinal: Yes: Diverticulitis (last episode 5 yrs ago treated conservatively), Hiatal Hernia, Other (small umbilical hernia) Musculoskeletal: Yes: Chronic low back pain, Other (with BLE pain (thighs) related to back pain) - Past Surgical History Past Surgical History: Yes: Cholecystectomy (laparoscopic), Colonoscopy (~4.5 yrs ago after diverticulitis - does not remember where/by whom), Tonsillectomy ( and adenoids as child) - Alcohol/Substance Use Hx Alcohol Use: Yes (occas/social - not for several months) History of Substance Use: reports: None - Smoking History Smoking history: Never smoked Have you smoked in the past 12 months: No Aproximately how many cigarettes per day: 0 - Social History ADL: Independent Home Medications - Allergies Allergies/Adverse Reactions: Allergies Allergy/AdvReac Type Severity Reaction Status Date / Time No Known Allergies Allergy Verified 11/29/17 17:05 - Home Medications Home Medications: Ambulatory Orders Hydrocodone/Acetaminophen [Vicodin Es 7.5-300 mg Tablet] 7.5 - 325 mg PO Q4H 02/10 Ibuprofen [Motrin -] 800 mg PO PRN 12/01/17 RX: Metaxalone [Metaxall] 800 mg PO DAILY 12/01/17 Family Disease History - Family Disease History Family Disease History: Heart Disease: Grandparent, Father (heart attack), CA: Mother (stg 4 lung CA (was smoker)) Other Family History: uncle with throat cancer (smoker) Review of Systems - Review of Systems Constitutional: reports: Fever Eyes: reports: No Symptoms HENT: reports: No Symptoms Neck: reports: No Symptoms Cardiovascular: reports: No Symptoms Respiratory: reports: No Symptoms Gastrointestinal: reports: Abdominal Pain, Bloating, Diarrhea Genitourinary: reports: No Symptoms Musculoskeletal: reports: No Symptoms Integumentary: reports: No Symptoms Neurological: reports: No Symptoms Endocrine: reports: No Symptoms Hematology/Lymphatic: reports: No Symptoms Psychiatric: reports: No Symptoms Physical Exam Vital Signs: Vital Signs Temperature 99.2 F 11/30/17 04:54 Pulse Rate 88 11/30/17 04:54 Respiratory Rate 18 11/30/17 04:54 Blood Pressure 113/50 11/30/17 04:54 O2 Sat by Pulse Oximetry (%) 98 11/30/17 03:20 Constitutional: Yes: Well Nourished, Calm, Mild Distress Eyes: Yes: Conjunctiva Clear Cardiovascular: Yes: Regular Rate and Rhythm Respiratory: Yes: Regular, CTA Bilaterally Gastrointestinal: Yes: Distention, Tenderness, Other (absent bowel sounds) Musculoskeletal: Yes: WNL Extremities: Yes: WNL Neurological: Yes: Alert, Oriented Psychiatric: Yes: Alert, Oriented Labs: CBC, BMP 11/30/17 08:20 11/30/17 08:20 Imaging - Results Cat Scan: Report Reviewed, Image Reviewed Assessment/Plan Problem List - Problems (1) Diverticulitis of large intestine with perforation without abscess or bleeding Code(s): K57.20 - DVTRCLI OF LG INT W PERFORATION AND ABSCESS W/O BLEEDING (2) Dehydration Code(s): E86.0 - DEHYDRATION (3) Fever presenting with conditions classified elsewhere Code(s): R50.81 - FEVER PRESENTING WITH CONDITIONS CLASSIFIED ELSEWHERE (4) Nausea Code(s): R11.0 - NAUSEA (5) Lower abdominal pain Code(s): R10.30 - LOWER ABDOMINAL PAIN, UNSPECIFIED plan continue close watch on fevere and wbc abx started npo iv fluids rest as per surgery
--- NOTE | 2017-11-30 11:54 | PN ---
Physical Exam: SUBJECTIVE: Patient seen and examined, lower abdominal pain, improved currently , no fevers/chills, nausea or vomiting currently. OBJECTIVE: Vital Signs Period Temp Pulse Resp BP Sys/Murillo Pulse Ox Last 24 Hr 98 F-102.2 F 80-128 16-20 100-133/50-73 97-99 General: sleeping comfortably, arousable, no acute distress in bed Chest: CTAB, no rales or wheezing Abdomen: soft, tenderness on lower abdominal region,more in LLQ, no voluntary or involuntary guarding or rigidity currently, positive bowel sounds, obese No RUQ tenderness, neg Eastman's sign Extremities: no edema Laboratory Results - last 24 hr 11/29/17 11/29/17 11/29/17 17:53 17:53 18:10 WBC 13.1 H RBC 4.78 Hgb 14.6 Hct 42.3 MCV 88.4 MCH 30.5 MCHC 34.5 RDW 12.4 Plt Count 210 MPV 10.3 Absolute Neuts (auto) 10.9 Neutrophils % 83.4 H Lymphocytes % 6.9 L D Monocytes % 9.1 D Eosinophils % 0.2 D Basophils % 0.4 Nucleated RBC % 0 PT with INR INR PTT (Actin FS) Sodium 138 Potassium 3.8 Chloride 104 Carbon Dioxide 25 Anion Gap 9 BUN 20 H Creatinine 1.1 Creat Clearance w eGFR > 60 Random Glucose 102 Lactic Acid 1.3 Calcium 8.6 Magnesium Total Bilirubin 3.3 H Direct Bilirubin AST 51 H D ALT 88 H D Alkaline Phosphatase 116 Total Protein 7.2 Albumin 3.5 Lipase 77 Urine Color Urine Appearance Urine pH Ur Specific Searchlight Urine Protein Urine Glucose (UA) Urine Ketones Urine Blood Urine Nitrite Urine Bilirubin Urine Urobilinogen Ur Leukocyte Esterase Urine WBC (Auto) Urine RBC (Auto) Ur Epithelial Cells Urine Mucus Blood Type Antibody Screen 11/29/17 11/29/17 11/29/17 23:25 23:25 23:25 WBC 15.4 H RBC 4.38 Hgb 13.2 Hct 38.8 MCV 88.7 MCH 30.1 MCHC 33.9 RDW 12.2 Plt Count 206 MPV 9.8 Absolute Neuts (auto) 12.2 Neutrophils % 79.2 Lymphocytes % 7.2 L Monocytes % 12.7 H Eosinophils % 0.2 Basophils % 0.7 Nucleated RBC % 0 PT with INR 15.70 H INR 1.39 H PTT (Actin FS) 32.6 Sodium Potassium Chloride Carbon Dioxide Anion Gap BUN Creatinine Creat Clearance w eGFR Random Glucose Lactic Acid Calcium Magnesium Total Bilirubin Direct Bilirubin AST ALT Alkaline Phosphatase Total Protein Albumin Lipase Urine Color Urine Appearance Urine pH Ur Specific Searchlight Urine Protein Urine Glucose (UA) Urine Ketones Urine Blood Urine Nitrite Urine Bilirubin Urine Urobilinogen Ur Leukocyte Esterase Urine WBC (Auto) Urine RBC (Auto) Ur Epithelial Cells Urine Mucus Blood Type O POSITIVE Antibody Screen Negative 11/29/17 11/30/17 11/30/17 23:25 02:05 02:46 WBC RBC Hgb Hct MCV MCH MCHC RDW Plt Count MPV Absolute Neuts (auto) Neutrophils % Lymphocytes % Monocytes % Eosinophils % Basophils % Nucleated RBC % PT with INR INR PTT (Actin FS) Sodium 137 Potassium 3.6 Chloride 104 Carbon Dioxide 26 Anion Gap 7 L BUN 18 Creatinine 0.9 Creat Clearance w eGFR > 60 Random Glucose 108 H Lactic Acid Calcium 8.0 L Magnesium Total Bilirubin 2.7 H Direct Bilirubin AST 46 H ALT 79 H Alkaline Phosphatase 97 D Total Protein 6.3 L Albumin 3.1 L Lipase Urine Color Yaritza Urine Appearance Clear Urine pH 5.0 Ur Specific Searchlight 1.039 H Urine Protein 1+ H Urine Glucose (UA) Negative Urine Ketones Negative Urine Blood Negative Urine Nitrite Negative Urine Bilirubin Negative Urine Urobilinogen 4.0 e.u/dl Ur Leukocyte Esterase Negative Urine WBC (Auto) 1 Urine RBC (Auto) 1 Ur Epithelial Cells Rare Urine Mucus Rare Blood Type O POSITIVE Antibody Screen 11/30/17 11/30/17 11/30/17 08:20 08:20 08:20 WBC 12.5 H RBC 3.98 L Hgb 12.1 Hct 35.9 MCV 90.2 MCH 30.5 MCHC 33.8 RDW 12.7 Plt Count 174 MPV 10.0 Absolute Neuts (auto) 9.8 Neutrophils % 78.4 Lymphocytes % 8.2 Monocytes % 12.5 H Eosinophils % 0.7 D Basophils % 0.2 Nucleated RBC % 0 PT with INR INR PTT (Actin FS) Sodium 140 Potassium 4.0 Chloride 105 Carbon Dioxide 28 Anion Gap 7 L BUN 16 Creatinine 0.8 Creat Clearance w eGFR > 60 Random Glucose 79 D Lactic Acid Calcium 7.9 L Magnesium 2.1 Total Bilirubin 2.4 H Direct Bilirubin 0.7 H AST 59 H D ALT 71 Alkaline Phosphatase 88 Total Protein 5.7 L Albumin 2.7 L Lipase Urine Color Urine Appearance Urine pH Ur Specific [place]light Urine Protein Urine Glucose (UA) Urine Ketones Urine Blood Urine Nitrite Urine Bilirubin Urine Urobilinogen Ur Leukocyte Esterase Urine WBC (Auto) Urine RBC (Auto) Ur Epithelial Cells Urine Mucus Blood Type Antibody Screen Active Medications Generic Name Dose Route Start Last Admin Trade Name Freq PRN Reason Stop Dose Admin Acetaminophen 1,000 mg 11/30/17 01:32 Ofirmev Injection - IVPB Q8H PRN Fever > 101.4F Heparin Sodium (Porcine) 5,000 unit 11/30/17 06:00 11/30/17 06:12 Heparin - SQ 5,000 unit TID LORIN Administration Potassium Chloride/Sodium Chloride 20 meq in 1,000 mls @ 125 mls/hr 11/30/17 01:45 11/30/17 03:02 Ns+20 Meq Kcl - IV 125 mls/hr ASDIR LORIN Administration Piperacillin Sod/Tazobactam 100 mls @ 200 mls/hr 11/30/17 18:00 Sod 4.5 gm/ Dextrose IVPB Q8H-IV LORIN Protocol Morphine Sulfate 4 mg 11/30/17 01:34 Morphine Sulfate IVPUSH Q4H PRN PAIN LEVEL 1-5 Ondansetron HCl 4 mg 11/30/17 00:54 Zofran Injection IVPUSH Q6H PRN NAUSEA CT A/P - awaiting official read. ASSESSMENT/PLAN: 52 yom with PMHx of diverticulitis x 2, last 5 years ago, managed conservatively admitted with Acute sigmoid diverticulitis with contained perforation with sepsis and abnormal LFTs - Acute sigmoid diverticulitis with contained perforation (on prelim read) with sepsis -Abnormal LFTs, ?sepsis,vs hepatic steatosis (normal LFTs in 06/2017), s/p CCY Plan: Surgery/ID input noted. Zosyn day 1. Blood cultures. IVF, NPO, pain control with morphine, serial abdominal exams. Follow up GI input and official CT A/P read Check ABdominal US, hepatitis panel. Trend LFTs, avoid hepatotoxic agents. DVTPPx with heparin Dispo pending clinical course. Plan discussed with patient in detail, all questions answered. Visit type - Emergency Visit Emergency Visit: Yes ED Registration Date: 11/30/17 Care time: The patient presented to the Emergency Department on the above date and was hospitalized for further evaluation of their emergent condition. - New Patient This patient is new to me today: Yes Date on this admission: 11/30/17 - Critical Care Critical Care patient: No - Discharge Referral Referred to [facility] Med P.C.: No
[2017-11-30 12:29] LABS: PHOSPHOROUS 2.6 mg/dL (2.5-4.9)
[2017-11-30] MEDS: DEXTROSE 5%-NORMAL SALINE 1,000 ML IV SCH ×2 (12:37→23:20)
--- NOTE | 2017-11-30 15:22 | PN ---
Progress Note, Physician History of Present Illness: Pt with sigmoid diverticulitis with contained perforation. Seen and examined in bed, girlfriend at bedside. Feeling a bit better, pain still there but less, managing well with prn morphine. Had 2 episodes of diarrhea. Reports urine nearly clear now, and voiding more. Less thirsty, but has had some headache, partly possibly from caffeine withdrawal (usually drinks 2 cups coffee daily). Ambulating ok. Appears comfortable and in good spirits. Still warm, but temps down from fever in ER. Second dose Zosyn given ~8am. - Current Medication List Current Medications: Active Medications Acetaminophen (Ofirmev Injection -) 1,000 mg IVPB Q8H PRN PRN Reason: Fever > 101.4F Heparin Sodium (Porcine) (Heparin -) 5,000 unit SQ TID [facility] Last Admin: 11/30/17 13:42 Dose: 5,000 unit Piperacillin Sod/Tazobactam (Sod 4.5 gm/ Dextrose) 100 mls @ 200 mls/hr IVPB Q8H-IV LORIN; Protocol Dextrose/Sodium Chloride (D5-Ns -) 1,000 mls @ 125 mls/hr IV ASDIR LORIN Last Admin: 11/30/17 12:37 Dose: 125 mls/hr Morphine Sulfate (Morphine Sulfate) 4 mg IVPUSH Q4H PRN PRN Reason: PAIN LEVEL 1-5 Last Admin: 11/30/17 14:35 Dose: 4 mg Ondansetron HCl (Zofran Injection) 4 mg IVPUSH Q6H PRN PRN Reason: NAUSEA - Objective Vital Signs: Vital Signs Temperature 98.1 F 11/30/17 08:00 Pulse Rate 81 11/30/17 08:00 Respiratory Rate 16 11/30/17 08:00 Blood Pressure 106/62 11/30/17 08:00 O2 Sat by Pulse Oximetry (%) 98 11/30/17 03:20 Vital Signs Period Temp Pulse Resp BP Sys/Murillo Pulse Ox Last 24 Hr 98 F-102.2 F 80-128 16-20 100-133/50-73 97-99 Constitutional: Yes: No Distress, Calm, Obese Eyes: Yes: Conjunctiva Clear, EOM Intact. No: Sclera Icterus HENT: Yes: Atraumatic, Normocephalic Gastrointestinal: Yes: Normal Bowel Sounds, Soft, Abdomen, Obese, Hernia (small umbilical/incisional), Tenderness (suprapubic and LLQ, less than yesterday, no guarding anymore, no rebound, minimal at RLQ). No: Tenderness, Epigastrium, Tenderness, Rebound ...Rectal Exam: Yes: Deferred Musculoskeletal: No: Joint Stiffness, Joint Swelling Extremities: No: Cool (skin warm, no longer sweating), Cyanosis Integumentary: Yes: Tattoos. No: Jaundice, Rash Neurological: Yes: Alert, Oriented Labs: CBC, BMP 11/30/17 08:20 11/30/17 08:20 CMP Sodium 140 mmol/L (136-145) 11/30/17 08:20 Potassium 4.0 mmol/L (3.5-5.1) 11/30/17 08:20 Chloride 105 mmol/L (98-107) 11/30/17 08:20 Carbon Dioxide 28 mmol/L (21-32) 11/30/17 08:20 Anion Gap 7 (8-16) L 11/30/17 08:20 BUN 16 mg/dL (7-18) 11/30/17 08:20 Creatinine 0.8 mg/dL (0.7-1.3) 11/30/17 08:20 Creat Clearance w eGFR > 60 (>60) 11/30/17 08:20 Random Glucose 79 mg/dL (74-106) D 11/30/17 08:20 Hemoglobin A1c % 5.0 % (4.8-6.0) 11/30/17 12:30 Calcium 7.9 mg/dL (8.5-10.1) L 11/30/17 08:20 Phosphorus 2.6 mg/dL (2.5-4.9) 11/30/17 08:20 Magnesium 2.1 mg/dL (1.8-2.4) 11/30/17 08:20 Total Bilirubin 2.4 mg/dL (0.2-1.0) H 11/30/17 08:20 Direct Bilirubin 0.7 mg/dL (0.0-0.2) H 11/30/17 08:20 AST 59 U/L (15-37) H D 11/30/17 08:20 ALT 71 U/L (12-78) 11/30/17 08:20 Alkaline Phosphatase 88 U/L (45-117) 11/30/17 08:20 Total Protein 5.7 g/dl (6.4-8.2) L 11/30/17 08:20 Albumin 2.7 g/dl (3.4-5.0) L 11/30/17 08:20 bili down a little, mostly indirect LFTs down Urine Test Results Urine Color Yaritza 11/30/17 02:46 Urine Appearance Clear 11/30/17 02:46 Urine pH 5.0 (5.0-8.0) 11/30/17 02:46 Ur Specific Morgan 1.039 (1.001-1.035) H 11/30/17 02:46 Urine Protein 1+ (NEGATIVE) H 11/30/17 02:46 Urine Glucose (UA) Negative (NEGATIVE) 11/30/17 02:46 Urine Ketones Negative (NEGATIVE) 11/30/17 02:46 Urine Blood Negative (NEGATIVE) 11/30/17 02:46 Urine Nitrite Negative (NEGATIVE) 11/30/17 02:46 Urine Bilirubin Negative (<2.0 mg/dL) 11/30/17 02:46 Ur Leukocyte Esterase Negative (NEGATIVE) 11/30/17 02:46 Ur Epithelial Cells Rare /HPF (FEW) 11/30/17 02:46 Urine Mucus Rare 11/30/17 02:46 Problem List - Problems (1) Diverticulitis of large intestine with perforation without abscess or bleeding Assessment/Plan: continue NPO/IVF - no po until no pain, no tenderness IV pain meds prn GI/DVT prophylaxis continue Zosyn per ID follow up blood cultures trend labs serial exams encourage OOB/ambulation as able IS for pulmonary toilet GI consult already improving with conservative measures continue abx, bowel rest, IVF will follow with you Code(s): K57.20 - DVTRCLI OF LG INT W PERFORATION AND ABSCESS W/O BLEEDING (2) Dehydration Assessment/Plan: improved with IV hydration would monitor UOP, I/O's for now Code(s): E86.0 - DEHYDRATION (3) Fever presenting with conditions classified elsewhere Assessment/Plan: would only treat >= 101.5 temp curve decreased Code(s): R50.81 - FEVER PRESENTING WITH CONDITIONS CLASSIFIED ELSEWHERE (4) Nausea Assessment/Plan: resolved Code(s): R11.0 - NAUSEA (5) Lower abdominal pain Assessment/Plan: improved Code(s): R10.30 - LOWER ABDOMINAL PAIN, UNSPECIFIED (6) Elevated liver function tests Assessment/Plan: improving, mostly indirect bilirubinemia checking hep panel US shows likely fatty liver pt denies ever being heavy drinker, just social EtOH ? potentially related to biliary stasis - pt had not eaten much for 4-5 days [employer] Code(s): R94.5 - ABNORMAL RESULTS OF LIVER FUNCTION STUDIES
[2017-11-30] MEDS: ACETAMINOPHEN 1000 MG/100 ML VIAL (NON FORMULARY) IVPB PRN (16:47)
[2017-11-30] MEDS: PIPERACILLIN/TAZOB 4.5 GM 4.5 GM in DEXTROSE 5%-WATER 100 ML IVPB SCH (17:08)
[2017-12-01] MEDS ORDERED: PIPERACILLIN/TAZOBACTAM 4.5 GM VIAL IVPB ONE ×3 (01:09→17:37)
[2017-12-01] MEDS ORDERED: DEXTROSE 5%-WATER 100 ML IVPB ONE ×3 (01:09→17:37)
[2017-12-01] MEDS: PIPERACILLIN/TAZOB 4.5 GM 4.5 GM in DEXTROSE 5%-WATER 100 ML IVPB SCH ×3 (01:16→17:56)
[2017-12-01] MEDS: ACETAMINOPHEN 1000 MG/100 ML VIAL (NON FORMULARY) IVPB PRN (06:23)
[2017-12-01] MEDS: HEPARIN NA (PORCINE) 5,000 UNITS/ML 1ML VIAL SQ SCH ×3 (06:24→22:44)
[2017-12-01 08:25] LABS: BASO % 0.5 % (0-2.0); EOS % 1.6 % (0-4.5); HEMATOCRIT 33.6 % (35.4-49); HEMOGLOBIN 11.5 GM/dL (11.7-16.9); LYMPH % 12.1 % (8-40); MCH 30.9 pg (25.7-33.7); MCHC 34.4 g/dl (32.0-35.9); MEAN CELL VOLUME 89.9 fl (80-96); MONO % 12.5 % (3.8-10.2); NEUT % 73.3 % (42.8-82.8); PLATELET COUNT 172 K/MM3 (134-434); RBC 3.73 M/mm3 (4.00-5.60); RDW 12.6 % (11.9-15.9); WHITE BLOOD COUNT 9.2 K/mm3 (4.0-10.0)
[2017-12-01 08:46] LABS: ALBUMIN 2.5 g/dl (3.4-5.0); ANION GAP 5 (8-16); BILIRUBIN,DIRECT 0.7 mg/dL (0.0-0.2); BILIRUBIN,TOTAL 1.8 mg/dL (0.2-1.0); BLOOD UREA NITROGEN 10 mg/dL (7-18); CALCIUM 7.9 mg/dL (8.5-10.1); CHLORIDE 104 mmol/L (98-107); CO2 30 mmol/L (21-32); CREATININE 0.7 mg/dL (0.7-1.3); GLUCOSE,RANDOM 102 mg/dL (74-106); MAGNESIUM 2.2 mg/dL (1.8-2.4); PHOSPHOROUS 2.6 mg/dL (2.5-4.9); POTASSIUM 3.7 mmol/L (3.5-5.1); SGOT/AST 52 U/L (15-37); SGPT/ALT 65 U/L (12-78); SODIUM 139 mmol/L (136-145)
[2017-12-01] MEDS ORDERED: MORPHINE SULFATE 2 MG/ML VIAL IVPUSH PRN (08:46)
[2017-12-01 08:48] LABS: ALK PHOS 86 U/L (45-117); TOT PROT 5.6 g/dl (6.4-8.2)
--- NOTE | 2017-12-01 11:48 | PN ---
Progress Note, Physician History of Present Illness: patient starting to feel well but spiked fever yesterday states the pain is better - Current Medication List Current Medications: Active Medications Acetaminophen (Ofirmev Injection -) 1,000 mg IVPB Q8H PRN PRN Reason: Fever > 101.4F Last Admin: 12/01/17 06:23 Dose: 1,000 mg Heparin Sodium (Porcine) (Heparin -) 5,000 unit SQ TID LORIN Last Admin: 12/01/17 06:24 Dose: 5,000 unit Piperacillin Sod/Tazobactam (Sod 4.5 gm/ Dextrose) 100 mls @ 200 mls/hr IVPB Q8H-IV LORIN; Protocol Last Admin: 12/01/17 10:10 Dose: 200 mls/hr Dextrose/Sodium Chloride (D5-Ns -) 1,000 mls @ 125 mls/hr IV ASDIR LORIN Last Admin: 11/30/17 23:20 Dose: 125 mls/hr Morphine Sulfate (Morphine Sulfate) 2 mg IVPUSH Q4H PRN PRN Reason: PAIN LEVEL 1-5 Ondansetron HCl (Zofran Injection) 4 mg IVPUSH Q6H PRN PRN Reason: NAUSEA - Objective Vital Signs: Vital Signs Temperature 98.9 F 12/01/17 09:00 Pulse Rate 73 12/01/17 09:00 Respiratory Rate 18 12/01/17 09:00 Blood Pressure 113/61 12/01/17 09:00 O2 Sat by Pulse Oximetry (%) 98 11/30/17 20:40 Constitutional: Yes: No Distress, Calm, Obese Cardiovascular: Yes: Regular Rate and Rhythm Respiratory: Yes: Regular, CTA Bilaterally Gastrointestinal: Yes: Hypoactive Bowel Sounds, Tenderness, Other Musculoskeletal: Yes: WNL Extremities: Yes: WNL Neurological: Yes: Alert, Oriented Psychiatric: Yes: Alert, Oriented Labs: CBC, BMP 12/01/17 07:00 12/01/17 07:00 INR, PTT INR 1.39 (0.82-1.09) H 11/29/17 23:25 Assessment/Plan Problem List - Problems (1) Diverticulitis of large intestine with perforation without abscess or bleeding Code(s): K57.20 - DVTRCLI OF LG INT W PERFORATION AND ABSCESS W/O BLEEDING (2) Dehydration Code(s): E86.0 - DEHYDRATION (3) Fever presenting with conditions classified elsewhere Code(s): R50.81 - FEVER PRESENTING WITH CONDITIONS CLASSIFIED ELSEWHERE (4) Lower abdominal pain Code(s): R10.30 - LOWER ABDOMINAL PAIN, UNSPECIFIED (5) Elevated liver function tests Code(s): R94.5 - ABNORMAL RESULTS OF LIVER FUNCTION STUDIES plan continue abx will watch fever and wbc curve if patient continues to spike then we will repeat ct scan also monitor liver enzymes if continues to increase then will decide about changing abx if needed close watch
[2017-12-01] MEDS: DEXTROSE 5%-NORMAL SALINE 1,000 ML IV SCH (13:46)
--- NOTE | 2017-12-01 14:12 | PN ---
Teaching Attending Note Name of Resident: Luc Tidwell ATTENDING PHYSICIAN STATEMENT I saw and evaluated the patient. I reviewed the resident's note and discussed the case with the resident. I agree with the resident's findings and plan as documented with exceptions below. SUBJECTIVE: Patient seen and examined. abdominal pain improved. No nausea, vomiting or diarrhea. fevers yesterday, low grade this AM. OBJECTIVE: Vital Signs Period Temp Pulse Resp BP Sys/Murillo Pulse Ox Last 24 Hr 98.9 F-102.8 F 73-89 18-20 103-131/50-74 98 Intake & Output 11/28/17 11/29/17 11/30/17 12/01/17 23:59 23:59 23:59 23:59 Intake Total 2225 1025 Output Total 1100 400 Balance 1125 625 Weight 260 lb 283 lb 7 oz General: lying in bed in no acute distress Abdomen:soft, obese, no RUQ tenderness, neg Eastman's sign, LLQ/RLQ and suprapubic tenderness, improved from yesterday, more in LLQ, improved voluntary guarding, no rigidity, positive bowel sounds Chest: CTAB, no rales or wheezing Home Medications Medication Instructions Recorded Hydrocodone/Acetaminophen [Vicodin 7.5 - 325 mg PO Q4H 12/01/17 Es 7.5-300 mg Tablet] Ibuprofen [Motrin -] 800 mg PO PRN 12/01/17 Metaxalone [Metaxall] 800 mg PO DAILY 12/01/17 Active Medications Acetaminophen (Ofirmev Injection -) 1,000 mg IVPB Q8H PRN PRN Reason: Fever > 101.4F Last Admin: 12/01/17 06:23 Dose: 1,000 mg Heparin Sodium (Porcine) (Heparin -) 5,000 unit SQ TID [facility]ORIN Last Admin: 12/01/17 13:46 Dose: 5,000 unit Piperacillin Sod/Tazobactam (Sod 4.5 gm/ Dextrose) 100 mls @ 200 mls/hr IVPB Q8H-IV LORIN; Protocol Last Admin: 12/01/17 10:10 Dose: 200 mls/hr Dextrose/Sodium Chloride (D5-Ns -) 1,000 mls @ 125 mls/hr IV ASDIR LORIN Last Admin: 12/01/17 13:46 Dose: Not Given Morphine Sulfate (Morphine Sulfate) 2 mg IVPUSH Q4H PRN PRN Reason: PAIN LEVEL 1-5 Ondansetron HCl (Zofran Injection) 4 mg IVPUSH Q6H PRN PRN Reason: NAUSEA Laboratory Results - last 24 hr 12/01/17 12/01/17 07:00 07:00 WBC 9.2 RBC 3.73 L Hgb 11.5 L Hct 33.6 L MCV 89.9 MCH 30.9 MCHC 34.4 RDW 12.6 Plt Count 172 MPV 10.0 Absolute Neuts (auto) 6.7 Neutrophils % 73.3 Lymphocytes % 12.1 D Monocytes % 12.5 H Eosinophils % 1.6 D Basophils % 0.5 Nucleated RBC % 0 Sodium 139 Potassium 3.7 Chloride 104 Carbon Dioxide 30 Anion Gap 5 L BUN 10 Creatinine 0.7 Creat Clearance w eGFR > 60 Random Glucose 102 D Calcium 7.9 L Phosphorus 2.6 Magnesium 2.2 Total Bilirubin 1.8 H Direct Bilirubin 0.7 H AST 52 H ALT 65 Alkaline Phosphatase 86 Total Protein 5.6 L Albumin 2.5 L Microbiology 11/29/17 23:25 Blood - Peripheral Venous Blood Culture - Preliminary NO GROWTH OBTAINED AFTER 24 HOURS, INCUBATION TO CONTINUE FOR 4 DAYS. 11/29/17 23:25 Blood - Peripheral Venous Blood Culture - Preliminary NO GROWTH OBTAINED AFTER 24 HOURS, INCUBATION TO CONTINUE FOR 4 DAYS. ASSESSMENT AND PLAN: 52 yom with PMHx of diverticulitis x 2, last 5 years ago, managed conservatively admitted with Acute sigmoid diverticulitis with contained perforation with sepsis and abnormal LFTs - Acute complicated sigmoid diverticulitis with contained microperforation and adjacent phlegmon -Sepsis -Abnormal LFTs, ?sepsis,vs hepatic steatosis (normal LFTs in 06/2017), s/p CCY Plan: Surgery/ID input noted. Zosyn day 2. Blood cultures. IVF, NPO, abdominal exam improved. WBC normalized. But persistent fevers. Monitor for now.Taper morphine. Repeat CT A/p likely in 2-3 days to assess response. GI consult Dr. Henderson. Abdominal US noted, LFTs improved. Follow up hepatitis panel. DVTPPx with heparin Dispo pending clinical course. Plan discussed with patient in detail, all questions answered.
--- NOTE | 2017-12-01 14:40 | PN ---
Progress Note, Physician History of Present Illness: Pt with sigmoid diverticulitis with contained perforation. Seen and examined in bed, was up in chair earlier. Continues to feel better, pain minimal at this point. Having some loose stool (likely contrast-related). Ambulating in halls. Appears comfortable and in good spirits. Passing gas but feeling bloated. - Current Medication List Current Medications: Active Medications Acetaminophen (Ofirmev Injection -) 1,000 mg IVPB Q8H PRN PRN Reason: Fever > 101.4F Last Admin: 12/01/17 06:23 Dose: 1,000 mg Heparin Sodium (Porcine) (Heparin -) 5,000 unit SQ TID [facility] Last Admin: 12/01/17 13:46 Dose: 5,000 unit Piperacillin Sod/Tazobactam (Sod 4.5 gm/ Dextrose) 100 mls @ 200 mls/hr IVPB Q8H-IV [facility]; Protocol Last Admin: 12/01/17 10:10 Dose: 200 mls/hr Dextrose/Sodium Chloride (D5-Ns -) 1,000 mls @ 125 mls/hr IV ASDIR [facility] Last Admin: 12/01/17 13:46 Dose: Not Given Morphine Sulfate (Morphine Sulfate) 2 mg IVPUSH Q4H PRN PRN Reason: PAIN LEVEL 1-5 Ondansetron HCl (Zofran Injection) 4 mg IVPUSH Q6H PRN PRN Reason: NAUSEA - Objective Vital Signs: Vital Signs Temperature 99.2 F 12/01/17 13:00 Pulse Rate 73 12/01/17 13:00 Respiratory Rate 20 12/01/17 13:00 Blood Pressure 109/64 12/01/17 13:00 O2 Sat by Pulse Oximetry (%) 98 11/30/17 20:40 Constitutional: Yes: No Distress, Calm, Obese Eyes: Yes: Conjunctiva Clear, EOM Intact HENT: Yes: Atraumatic, Normocephalic Gastrointestinal: Yes: Normal Bowel Sounds, Soft, Abdomen, Obese, Distention ( some), Tenderness (suprapubic and less LLQ - mild, improved from yesterday, no R /G) ...Rectal Exam: Yes: Deferred Extremities: No: Cool, Cyanosis Integumentary: Yes: Tattoos. No: Jaundice, Rash Neurological: Yes: Alert, Oriented Labs: CBC, BMP 12/01/17 07:00 12/01/17 07:00 CMP Sodium 139 mmol/L (136-145) 12/01/17 07:00 Potassium 3.7 mmol/L (3.5-5.1) 12/01/17 07:00 Chloride 104 mmol/L (98-107) 12/01/17 07:00 Carbon Dioxide 30 mmol/L (21-32) 12/01/17 07:00 Anion Gap 5 (8-16) L 12/01/17 07:00 BUN 10 mg/dL (7-18) 12/01/17 07:00 Creatinine 0.7 mg/dL (0.7-1.3) 12/01/17 07:00 Creat Clearance w eGFR > 60 (>60) 12/01/17 07:00 Random Glucose 102 mg/dL (74-106) D 12/01/17 07:00 Hemoglobin A1c % 5.0 % (4.8-6.0) 11/30/17 12:30 Lactic Acid 1.3 mmol/L (0.0-2.0) 11/29/17 18:10 Calcium 7.9 mg/dL (8.5-10.1) L 12/01/17 07:00 Phosphorus 2.6 mg/dL (2.5-4.9) 12/01/17 07:00 Magnesium 2.2 mg/dL (1.8-2.4) 12/01/17 07:00 Total Bilirubin 1.8 mg/dL (0.2-1.0) H 12/01/17 07:00 Direct Bilirubin 0.7 mg/dL (0.0-0.2) H 12/01/17 07:00 AST 52 U/L (15-37) H 12/01/17 07:00 ALT 65 U/L (12-78) 12/01/17 07:00 Alkaline Phosphatase 86 U/L (45-117) 12/01/17 07:00 Total Protein 5.6 g/dl (6.4-8.2) L 12/01/17 07:00 Albumin 2.5 g/dl (3.4-5.0) L 12/01/17 07:00 Lipase 77 U/L (73-393) 11/29/17 17:53 LFTs down further Problem List - Problems (1) Diverticulitis of large intestine with perforation without abscess or bleeding Assessment/Plan: continue Zosyn per ID - has had almost 48 hrs of IV abx continue NPO/IVF, may consider clears tomorrow if still improving IV pain meds prn - minimize as able GI/DVT prophylaxis follow up blood cultures - neg to date trend labs serial exams encourage OOB/ambulation as able IS for pulmonary toilet improving with conservative measures continue abx, bowel rest, IVF will follow with you Code(s): K57.20 - DVTRCLI OF LG INT W PERFORATION AND ABSCESS W/O BLEEDING (2) Dehydration Assessment/Plan: resolved Code(s): E86.0 - DEHYDRATION (3) Fever presenting with conditions classified elsewhere Assessment/Plan: would only treat >= 101.5 temp curve decreased, still with low grade temps Code(s): R50.81 - FEVER PRESENTING WITH CONDITIONS CLASSIFIED ELSEWHERE (4) Lower abdominal pain Assessment/Plan: improved Code(s): R10.30 - LOWER ABDOMINAL PAIN, UNSPECIFIED (5) Elevated liver function tests Assessment/Plan: improving, mostly indirect bilirubinemia checking hep panel - pending US shows likely fatty liver pt denies ever being heavy drinker, just social EtOH ? 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
--- NOTE | 2017-12-01 21:10 | PN ---
Physical Exam: SUBJECTIVE: Patient seen and examined. Overnight Pt. spiked a temperature to 100.3. Pt. was able to pass urine and loose, non-bloody stool. Pt. denies much ambulation d/t pain. Pt endorses pain is 4/10 vs. 8/10 on admission. NPO. OBJECTIVE: Vital Signs Period Temp Pulse Resp BP Sys/Murillo Pulse Ox Last 24 Hr 98.7 F-100.3 F 73-87 18-20 107-131/61-74 GENERAL: The patient is awake, alert, and fully oriented, in no acute distress, diaphoretic. LUNGS: Breath sounds equal, clear to auscultation bilaterally, no wheezes, no crackles, no accessory muscle use. HEART: Regular rate and rhythm, S1, S2 without murmur ABDOMEN: nondistended, normoactive bowel sounds, involuntary and voluntary guarding in periumbilical, suprapubic, RLQ and LLQ, EXTREMITIES: warm, well-perfused, no edema, no calf tenderness SKIN: Warm, dry, normal turgor Laboratory Results - last 24 hr 12/01/17 12/01/17 07:00 07:00 WBC 9.2 RBC 3.73 L Hgb 11.5 L Hct 33.6 L MCV 89.9 MCH 30.9 MCHC 34.4 RDW 12.6 Plt Count 172 MPV 10.0 Absolute Neuts (auto) 6.7 Neutrophils % 73.3 Lymphocytes % 12.1 D Monocytes % 12.5 H Eosinophils % 1.6 D Basophils % 0.5 Nucleated RBC % 0 Sodium 139 Potassium 3.7 Chloride 104 Carbon Dioxide 30 Anion Gap 5 L BUN 10 Creatinine 0.7 Creat Clearance w eGFR > 60 Random Glucose 102 D Calcium 7.9 L Phosphorus 2.6 Magnesium 2.2 Total Bilirubin 1.8 H Direct Bilirubin 0.7 H AST 52 H ALT 65 Alkaline Phosphatase 86 Total Protein 5.6 L Albumin 2.5 L EKG: Sinus Tachycardia, Non-specific T-wave abnormalities evident in anterolateral leads Active Medications Current Medications Acetaminophen (Ofirmev Injection -) 1,000 mg IVPB Q8H PRN PRN Reason: Fever > 101.4F Last Admin: 12/01/17 06:23 Dose: 1,000 mg Heparin Sodium (Porcine) (Heparin -) 5,000 unit SQ TID [facility] Last Admin: 12/01/17 13:46 Dose: 5,000 unit Piperacillin Sod/Tazobactam (Sod 4.5 gm/ Dextrose) 100 mls @ 200 mls/hr IVPB Q8H-IV [facility]; Protocol Last Admin: 12/01/17 17:56 Dose: 200 mls/hr Dextrose/Sodium Chloride (D5-Ns -) 1,000 mls @ 125 mls/hr IV ASDIR [facility]ORIN Last Admin: 12/01/17 13:46 Dose: Not Given Morphine Sulfate (Morphine Sulfate) 2 mg IVPUSH Q4H PRN PRN Reason: PAIN LEVEL 1-5 Ondansetron HCl (Zofran Injection) 4 mg IVPUSH Q6H PRN PRN Reason: NAUSEA ASSESSMENT/PLAN: 52 yo M admitted for sepsis 2/2 recurrent diverticulitis. #Sepsis 2/2 Diverticulitis with contained perforation - NPO - IVF, received 3L boluses and cont. standing D5/NS 125ml/hr - Cont. zosyn 3.375mg Q6h- Day 2 (12/01/17) - GI and surgery onboard - ID consult - Colonoscopy as outpatient - consider reimaging in a few days? - Tylenol 1,000mg IVP q8h PRN - c/w ondansetron - f/u w/ Dr. Henderson #Transaminitis - Likely reactive from sepsis and improving - Cont. to trend - resolving #DVT ppx: -heparin TID #Dispo: -cont. to monitor on med-surg Visit type - Emergency Visit Emergency Visit: No - New Patient This patient is new to me today: No - Critical Care Critical Care patient: No - Discharge Referral Referred to [facility] Med P.C.: No
[2017-12-02] MEDS ORDERED: PIPERACILLIN/TAZOBACTAM 4.5 GM VIAL IVPB ONE ×4 (01:19→23:31)
[2017-12-02] MEDS ORDERED: DEXTROSE 5%-WATER 100 ML IVPB ONE ×4 (01:20→23:32)
[2017-12-02] MEDS: DEXTROSE 5%-NORMAL SALINE 1,000 ML IV SCH ×4 (01:30→21:57)
[2017-12-02] MEDS: PIPERACILLIN/TAZOB 4.5 GM 4.5 GM in DEXTROSE 5%-WATER 100 ML IVPB SCH ×3 (01:42→17:58)
[2017-12-02] MEDS: HEPARIN NA (PORCINE) 5,000 UNITS/ML 1ML VIAL SQ SCH ×3 (06:01→21:46)
[2017-12-02 06:10] LABS: HEP.C VIRUS AB <0.1 s/co ratio (0.0-0.9)
[2017-12-02 08:49] LABS: BASO % 0.7 % (0-2.0); EOS % 3.6 % (0-4.5); HEMATOCRIT 35.9 % (35.4-49); HEMOGLOBIN 12.2 GM/dL (11.7-16.9); LYMPH % 22.1 % (8-40); MCH 30.4 pg (25.7-33.7); MEAN CELL VOLUME 89.3 fl (80-96); MEAN PLT VOLUME 9.7 fl (7.5-11.1); MONO % 10.5 % (3.8-10.2); NEUT % 63.1 % (42.8-82.8); PLATELET COUNT 232 K/MM3 (134-434); RBC 4.02 M/mm3 (4.00-5.60); RDW 12.6 % (11.9-15.9); WHITE BLOOD COUNT 6.8 K/mm3 (4.0-10.0)
[2017-12-02 09:20] LABS: ALBUMIN 2.7 g/dl (3.4-5.0); ANION GAP 7 (8-16); BLOOD UREA NITROGEN 7 mg/dL (7-18); CALCIUM 8.5 mg/dL (8.5-10.1); CHLORIDE 106 mmol/L (98-107); CO2 29 mmol/L (21-32); GLUCOSE,RANDOM 94 mg/dL (74-106); POTASSIUM 3.6 mmol/L (3.5-5.1); SGOT/AST 58 U/L (15-37); SODIUM 142 mmol/L (136-145)
[2017-12-02 09:22] LABS: ALK PHOS 94 U/L (45-117); CREATININE 0.7 mg/dL (0.7-1.3); PHOSPHOROUS 3.1 mg/dL (2.5-4.9); SGPT/ALT 80 U/L (12-78); TOT PROT 6.2 g/dl (6.4-8.2)
[2017-12-02 09:57] LABS: MAGNESIUM 2.2 mg/dL (1.8-2.4)
--- NOTE | 2017-12-02 10:41 | CON.GI ---
Consult Consult Specialty:: Gastroenterology Reason for Consultation:: sigmoid diverticulitis - History of Present Illness Chief Complaint: recurrent diverticulitis History of Present Illness: Patient is a 52 y/o male with PMH of recurrent diverticulitis (x3 episodes), chronic back pain, and umbilical hernia presented to [facility] with 5 days of worsening LLQ abdominal pain and nausea. Patient attributed the symptoms of reflux and tried drinking gatorade/taking at home remedies, with no resolution of symptoms. In the ER patient was noted to be febrile, to have a WBC of 13.1 Tbilli of 3.3, AST/ALT: 51/88, Lipase:77, Albumin: 3.5, and Alk Phos: 116. On Abdominal CT, patient was noted to have sigmoid diverticulitis with a contained microperforation and fatty liver. This is similar to his previous episodes of diverticulitis back in 2012. Patient states his last colonoscopy was back in 2012 right after the diverticulitis episodes and notes to having an EGD a very long time ago. - History Source History Provided By: Patient - Past Medical History Pulmonary: Yes: Bronchitis (last episode back in june ) Gastrointestinal: Yes: Diverticulitis (last episode 5 yrs ago treated conservatively), Other (small umbilical hernia) Musculoskeletal: Yes: Chronic low back pain, Other (with BLE pain (thighs) related to back pain) - Past Surgical History Past Surgical History: Yes: Cholecystectomy (laparoscopic), Colonoscopy (~4.5 yrs ago after diverticulitis ), Tonsillectomy (and adenoids as child) - Alcohol/Substance Use Hx Alcohol Use: Yes (occas/social - not for several months) History of Substance Use: reports: None - Smoking History Smoking history: Never smoked Have you smoked in the past 12 months: No Aproximately how many cigarettes per day: 0 - Social History ADL: Independent 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 Henderson Referred by:: Hospitalist Service - History of Present Illness Chief Complaint: "I had abdominal pain for 5 days" <Josué Gallego - Last Filed: 12/02/17 16:36> Home Medications <Aaliyah Machado - Last Filed: 12/02/17 12:11> <Josué Gallego - Last Filed: 12/02/17 16:36> - Allergies Allergies/Adverse Reactions: Allergies Allergy/AdvReac Type Severity Reaction Status Date / Time No Known Allergies Allergy Verified 11/29/17 17:05 - Home Medications Home Medications: Ambulatory Orders Hydrocodone/Acetaminophen [Vicodin Es 7.5-300 mg Tablet] 7.5 - 325 mg PO Q4H 02/10 Ibuprofen [Motrin -] 800 mg PO PRN 12/01/17 Metaxalone [Metaxall] 800 mg PO DAILY 12/01/17 Family Disease History - Family Disease History Family Disease History: Heart Disease: Grandparent, Father (heart attack), CA: Mother (stg 4 lung CA (was smoker)) Other Family History: no known family history of any GI malignancies <Aaliyah Machado - Last Filed: 12/02/17 12:11> Review of Systems - Review of Systems Cardiovascular: denies: Chest Pain, Palpitations Respiratory: denies: SOB Gastrointestinal: reports: Abdominal Pain (slight abdominal pain: 08/02). denies : Rectal Bleeding Musculoskeletal: reports: Back Pain (chronic history) <Aaliyah Machado - Last Filed: 12/02/17 12:11> Physical Exam-GI Vital Signs: Vital Signs Temperature 99 F 12/02/17 07:41 Pulse Rate 68 12/02/17 07:41 Respiratory Rate 18 12/02/17 07:41 Blood Pressure 116/63 12/02/17 07:41 O2 Sat by Pulse Oximetry (%) 98 11/30/17 20:40 Constitutional: Yes: No Distress Eyes: No: Sclera Icterus Cardiovascular: Yes: Regular Rate and Rhythm. No: Murmur Respiratory: Yes: CTA Bilaterally Gastrointestinal Inspection: Yes: Distention (slightly distended), Scars ( incisional scar) ...Auscultate: Yes: Normoactive Bowel Sounds ...Palpate: Yes: Soft. No: Tenderness ...Percussion: No: Tympanitic Edema: LUE: 1+, RUE: 1+ Labs: Hepatic Panel Total Bilirubin 1.0 mg/dL (0.2-1.0) 12/02/17 08:00 Direct Bilirubin 0.7 mg/dL (0.0-0.2) H 12/01/17 07:00 AST 58 U/L (15-37) H 12/02/17 08:00 ALT 80 U/L (12-78) H D 12/02/17 08:00 Alkaline Phosphatase 94 U/L (45-117) 12/02/17 08:00 Albumin 2.7 g/dl (3.4-5.0) L 12/02/17 08:00 CBC, BMP 12/02/17 08:00 12/02/17 08:00 INR, PTT INR 1.39 (0.82-1.09) H 11/29/17 23:25 <Aaliyah Machado - Last Filed: 12/02/17 12:11> Vital Signs: Vital Signs Temperature 99 F 12/02/17 07:41 Pulse Rate 68 12/02/17 07:41 Respiratory Rate 18 12/02/17 07:41 Blood Pressure 116/63 12/02/17 07:41 O2 Sat by Pulse Oximetry (%) 98 11/30/17 20:40 Labs: CBC, BMP 12/02/17 08:00 12/02/17 08:00 INR, PTT INR 1.39 (0.82-1.09) H 11/29/17 23:25 Laboratory Tests 11/30/17 12:30 Hepatitis A IgM Ab Negative Hep Bs Antigen Negative Hep B Core IgM Ab Negative Hepatitis C Antibody <0.1 <Josué Gallego - Last Filed: 12/02/17 16:36> Imaging - Results Cat Scan: Report Reviewed Ultrasound: Report Reviewed <Aaliyah Machado - Last Filed: 12/02/17 12:11> Problem List - Problems (1) Diverticulitis large intestine Assessment/Plan: patients clinical status is improving and is no longer experiencing diffuse abdominal pain - continue with ABx therapy -continue with IV fluids -repeat colonoscopy as outpatient atleast six weeks after discharge; since last one was 5 years ago elevated liver enzymes: -US showed fatty liver -likely due to sepsis; however, levels are downtrending and hepatitis panel is negative -patient denies any history of alcohol abuse, just social drinking - Code(s): K57.32 - DVTRCLI OF LG INT W/O PERFORATION OR ABSCESS W/O BLEEDING Qualifiers: Diverticulitis complication: with perforation <Aaliyah Machado - Last Filed: 12/02/17 12:11> - Problems (1) Diverticulitis large intestine Assessment/Plan: ATTENDING PHYSICIAN STATEMENT I saw and evaluated the patient. I reviewed the resident's note and discussed the case with the resident. I agree with the resident's findings and plan as documented. SUBJECTIVE: 52M with h/o diverticulitis x 2 (the last episode in 2012 w/ ? perforation at that time) with 5 days of worsening predominantly LLQ abdominal pain. Noted to have acute sigmoid diverticulitis with walled off perforation and w/o drainable collection. Clinically pain has imporoved. OBJECTIVE: Anicteric Hrt RRR Lungs: CTA B/L Abdomen: sft, +BS, + moderate TTP in the LLQ without guarding Ext: No LE edema labs: WBC: 12.2 AST: 58 ALT: 80 TB: 1.0 (3.3 on admission) In review of the [facility] system there has been an isolated hyperbilirubinemia in the past CT scan: as noted above Imp: 1. Recurrent complicated sigmoid diverticulitis 2. Abnormal liver chemistries: fatty liver noted on CT scan. Also with hyperbilirubinemia in the past. ? if gilbert's in the past and now with reactive transaminitis secondary to diverticulitis. Plan: IV Abx per ID Started on clears by surgery today Ordered hepatic panel in AM Check hepatitis B surface antibody. If not vaccinated he should be offered vaccination Monitor abdominal exam avoid NSAID analgesia given potential increased risk for perforation Will need follow-up colonoscopy in 6-8 weeks upon discharge Code(s): K57.32 - DVTRCLI OF LG INT W/O PERFORATION OR ABSCESS W/O BLEEDING Qualifiers: Diverticulitis complication: with perforation <Josué Gallego - Last Filed: 12/02/17 16:36>
--- NOTE | 2017-12-02 11:58 | PN ---
Progress Note, Physician History of Present Illness: Pt with sigmoid diverticulitis with contained perforation. Seen and examined ambulating in room, up to chair. Continues to feel better, no pain at this point. Appears comfortable and in good spirits. Would like to eat. - Current Medication List Current Medications: Active Medications Acetaminophen (Ofirmev Injection -) 1,000 mg IVPB Q8H PRN PRN Reason: Fever > 101.4F Last Admin: 12/01/17 06:23 Dose: 1,000 mg Heparin Sodium (Porcine) (Heparin -) 5,000 unit SQ TID [facility] Last Admin: 12/02/17 06:01 Dose: 5,000 unit Piperacillin Sod/Tazobactam (Sod 4.5 gm/ Dextrose) 100 mls @ 200 mls/hr IVPB Q8H-IV [facility]; Protocol Last Admin: 12/02/17 10:55 Dose: 200 mls/hr Dextrose/Sodium Chloride (D5-Ns -) 1,000 mls @ 125 mls/hr IV ASDIR [facility] Last Admin: 12/02/17 10:56 Dose: 125 mls/hr Morphine Sulfate (Morphine Sulfate) 2 mg IVPUSH Q4H PRN PRN Reason: PAIN LEVEL 1-5 Ondansetron HCl (Zofran Injection) 4 mg IVPUSH Q6H PRN PRN Reason: NAUSEA - Objective Vital Signs: Vital Signs Temperature 99 F 12/02/17 07:41 Pulse Rate 68 12/02/17 07:41 Respiratory Rate 18 12/02/17 07:41 Blood Pressure 116/63 12/02/17 07:41 O2 Sat by Pulse Oximetry (%) 98 11/30/17 20:40 Vital Signs Period Temp Pulse Resp BP Sys/Murillo Pulse Ox Last 24 Hr 98.7 F-99.4 F 68-98 18-20 107-143/53-64 low grade temps, but curve decreasing Constitutional: Yes: No Distress, Calm, Obese Eyes: Yes: Conjunctiva Clear, EOM Intact. No: Sclera Icterus HENT: Yes: Atraumatic, Normocephalic Gastrointestinal: Yes: Soft, Abdomen, Obese. No: Tenderness (no direct suprapubic tenderness) ...Rectal Exam: Yes: Deferred Extremities: No: Cool, Cyanosis Integumentary: Yes: Tattoos. No: Jaundice, Rash Neurological: Yes: Alert, Oriented Labs: CBC, BMP 12/02/17 08:00 12/02/17 08:00 CMP Sodium 142 mmol/L (136-145) 12/02/17 08:00 Potassium 3.6 mmol/L (3.5-5.1) 12/02/17 08:00 Chloride 106 mmol/L (98-107) 12/02/17 08:00 Carbon Dioxide 29 mmol/L (21-32) 12/02/17 08:00 Anion Gap 7 (8-16) L 12/02/17 08:00 BUN 7 mg/dL (7-18) 12/02/17 08:00 Creatinine 0.7 mg/dL (0.7-1.3) 12/02/17 08:00 Creat Clearance w eGFR > 60 (>60) 12/02/17 08:00 Random Glucose 94 mg/dL (74-106) 12/02/17 08:00 Hemoglobin A1c % 5.0 % (4.8-6.0) 11/30/17 12:30 Lactic Acid 1.3 mmol/L (0.0-2.0) 11/29/17 18:10 Calcium 8.5 mg/dL (8.5-10.1) 12/02/17 08:00 Phosphorus 3.1 mg/dL (2.5-4.9) 12/02/17 08:00 Magnesium 2.2 mg/dL (1.8-2.4) 12/02/17 08:00 Total Bilirubin 1.0 mg/dL (0.2-1.0) 12/02/17 08:00 Direct Bilirubin 0.7 mg/dL (0.0-0.2) H 12/01/17 07:00 AST 58 U/L (15-37) H 12/02/17 08:00 ALT 80 U/L (12-78) H D 12/02/17 08:00 Alkaline Phosphatase 94 U/L (45-117) 12/02/17 08:00 Total Protein 6.2 g/dl (6.4-8.2) L 12/02/17 08:00 Albumin 2.7 g/dl (3.4-5.0) L 12/02/17 08:00 Lipase 77 U/L (73-393) 11/29/17 17:53 LFTs almost normal, bili down to 1 Microbiology 11/29/17 23:25 Blood Culture - Preliminary Blood - Peripheral Venous NO GROWTH OBTAINED AFTER 48 HOURS, INCUBATION TO CONTINUE FOR 3 DAYS. 11/29/17 23:25 Blood Culture - Preliminary Blood - Peripheral Venous NO GROWTH OBTAINED AFTER 48 HOURS, INCUBATION TO CONTINUE FOR 3 DAYS. Problem List - Problems (1) Diverticulitis of large intestine with perforation without abscess or bleeding Assessment/Plan: continue Zosyn per ID eventually will complete course po on discharge pain, tenderness resolved will start clear liquids pain meds prn, po ok, encourage nonnarcotics GI/DVT prophylaxis blood cultures neg to date LFTs nearly normalized serial exams OOB/ambulation/IS GI consult noted may need colonoscopy 6-8 weeks after resolution (last 5 yrs ago) improving with conservative measures continue abx, IVF for now - can stop IVF after dinner if hydrating well will follow with you Code(s): K57.20 - DVTRCLI OF LG INT W PERFORATION AND ABSCESS W/O BLEEDING (2) Fever presenting with conditions classified elsewhere Assessment/Plan: would only treat >= 101.5 temp curve decreased, low grade temps improving Code(s): R50.81 - FEVER PRESENTING WITH CONDITIONS CLASSIFIED ELSEWHERE (3) Lower abdominal pain Assessment/Plan: resolved Code(s): R10.30 - LOWER ABDOMINAL PAIN, UNSPECIFIED (4) Elevated liver function tests Assessment/Plan: improved hep panel negative US shows likely fatty liver pt denies ever being heavy drinker, just social EtOH most likely related to biliary stasis - pt had not eaten much for 4-5 days 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
[2017-12-02] MEDS ORDERED: ACETAMINOPHEN 325 MG TABLET (FP) PO PRN (12:00)
[2017-12-02] MEDS ORDERED: oxyCODONE HCL 5 MG TABLET PO PRN (12:02)
--- NOTE | 2017-12-02 14:15 | PN ---
Progress Note, Physician History of Present Illness: doing well no new issues had one low grade fever but has beens table since then - Current Medication List Current Medications: Active Medications Acetaminophen (Tylenol -) 650 mg PO Q6H PRN PRN Reason: Pain 1-10 Or Fever >101.4 Heparin Sodium (Porcine) (Heparin -) 5,000 unit SQ TID [facility] Last Admin: 12/02/17 06:01 Dose: 5,000 unit Piperacillin Sod/Tazobactam (Sod 4.5 gm/ Dextrose) 100 mls @ 200 mls/hr IVPB Q8H-IV [facility]; Protocol Last Admin: 12/02/17 10:55 Dose: 200 mls/hr Dextrose/Sodium Chloride (D5-Ns -) 1,000 mls @ 100 mls/hr IV ASDIR [facility] Ondansetron HCl (Zofran Injection) 4 mg IVPUSH Q6H PRN PRN Reason: NAUSEA Oxycodone HCl (Roxicodone -) 5 mg PO Q6H PRN PRN Reason: Pain Level 7 - 10 BREAKTHROUGH - Objective Vital Signs: Vital Signs Temperature 99 F 12/02/17 07:41 Pulse Rate 68 12/02/17 07:41 Respiratory Rate 18 12/02/17 07:41 Blood Pressure 116/63 12/02/17 07:41 O2 Sat by Pulse Oximetry (%) 98 11/30/17 20:40 Constitutional: Yes: No Distress, Calm, Obese Cardiovascular: Yes: Regular Rate and Rhythm Respiratory: Yes: Regular, CTA Bilaterally Gastrointestinal: Yes: Normal Bowel Sounds, Soft Musculoskeletal: Yes: WNL Extremities: Yes: WNL Neurological: Yes: Alert, Oriented Psychiatric: Yes: Alert, Oriented Labs: CBC, BMP 12/02/17 08:00 12/02/17 08:00 INR, PTT INR 1.39 (0.82-1.09) H 11/29/17 23:25 Assessment/Plan Problem List - Problems (1) Diverticulitis of large intestine with perforation without abscess or bleeding Code(s): K57.20 - DVTRCLI OF LG INT W PERFORATION AND ABSCESS W/O BLEEDING (2) Dehydration Code(s): E86.0 - DEHYDRATION (3) Fever presenting with conditions classified elsewhere Code(s): R50.81 - FEVER PRESENTING WITH CONDITIONS CLASSIFIED ELSEWHERE (4) Lower abdominal pain Code(s): R10.30 - LOWER ABDOMINAL PAIN, UNSPECIFIED (5) Elevated liver function tests Code(s): R94.5 - ABNORMAL RESULTS OF LIVER FUNCTION STUDIES plan continue abx will watch fever and wbc curve await for patient to start orally once patient starts orally will d/w surgery and switch to oral abx
--- NOTE | 2017-12-02 17:49 | PN ---
Teaching Attending Note Name of Resident: Luc Tidwell ATTENDING PHYSICIAN STATEMENT I saw and evaluated the patient. I reviewed the resident's note and discussed the case with the resident. I agree with the resident's findings and plan as documented. SUBJECTIVE:pain significantly improved. having loose BM no notes of blood. denies CP, SOB, fever, chills, N/V/C/D OBJECTIVE: Last Vital Signs Temp Pulse Resp BP Pulse Ox 98.8 F 84 20 102/65 98 12/02/17 16:20 12/02/17 16:20 12/02/17 16:20 12/02/17 16:20 11/30/17 20:40 General NAD CV S1 S2 RRR no murmur/rub/gallop LUngs CTA B/L no wheezing/rales/rhnchi abdomen soft +LLQ tenderness not distended. +obese ASSESSMENT AND PLAN: 52 yom with PMHx of diverticulitis x 2, last 5 years ago, managed conservatively admitted with Acute sigmoid diverticulitis with contained perforation with sepsis and abnormal LFTs 1. Sepsis due to Acute complicated sigmoid diverticulitis with contained microperforation and adjacent phlegmon- clinically stable. abdominal exam improved from previous reports. will advance to clear liquid diet.on zosyn day 3. cont IVF can d/c once tolerating diet. explained to pt if develops worsening pain will need to stop eating. will need to repeat CT in several days. pain control. Surgery, GI and ID on board. all cx negative 2. Abnormal LFTs, ?sepsis,vs hepatic steatosis (normal LFTs in 06/2017)- u/s showing fatty infiltration. hepatitits panel negative. cont to monitor 3. DVT ppx- hep sq
--- NOTE | 2017-12-02 19:57 | PN ---
Physical Exam: SUBJECTIVE: Patient seen and examined. Pt. had no acute events over night. Pt. endorses feeling better. Pt. is bored but understands how the course of treatment will proceed. Pt. admits to not walking around as much as he should because of pain. OBJECTIVE: Vital Signs Period Temp Pulse Resp BP Sys/Murillo Pulse Ox Last 24 Hr 98.7 F-99.4 F 68-98 18-20 102-143/53-65 GENERAL: The patient is awake, alert, and fully oriented, in no acute distress, lying comfortably watching TV. LUNGS: crackles in the posterior lung with the fluid dependent areas, no accessory muscle use. HEART: Regular rate and rhythm, S1, S2 without murmur, rub or gallop. ABDOMEN: Soft, nondistended, normoactive bowel sounds, tender to palpation around the periumbilical, suprapubic and LLQ EXTREMITIES: warm, well-perfused, no edema, no calf pain. PSYCH: Normal mood, normal affect. SKIN: Warm, dry, normal turgor Laboratory Results - last 24 hr 11/30/17 12/02/17 12/02/17 12:30 08:00 08:00 WBC 6.8 RBC 4.02 Hgb 12.2 Hct 35.9 MCV 89.3 MCH 30.4 MCHC 34.0 RDW 12.6 Plt Count 232 D MPV 9.7 Absolute Neuts (auto) 4.3 Neutrophils % 63.1 Lymphocytes % 22.1 D Monocytes % 10.5 H Eosinophils % 3.6 D Basophils % 0.7 Nucleated RBC % 0 Sodium 142 Potassium 3.6 Chloride 106 Carbon Dioxide 29 Anion Gap 7 L BUN 7 Creatinine 0.7 Creat Clearance w eGFR > 60 Random Glucose 94 Calcium 8.5 Phosphorus 3.1 Magnesium 2.2 Total Bilirubin 1.0 AST 58 H ALT 80 H D Alkaline Phosphatase 94 Total Protein 6.2 L Albumin 2.7 L Hepatitis A IgM Ab Negative Hep Bs Antigen Negative Hep B Core IgM Ab Negative Hepatitis C Antibody <0.1 Active Medications Current Medications Acetaminophen (Tylenol -) 650 mg PO Q6H PRN PRN Reason: Pain 1-10 Or Fever >101.4 Heparin Sodium (Porcine) (Heparin -) 5,000 unit SQ TID [facility] Last Admin: 12/02/17 16:19 Dose: 5,000 unit Piperacillin Sod/Tazobactam (Sod 4.5 gm/ Dextrose) 100 mls @ 200 mls/hr IVPB Q8H-IV [facility]; Protocol Last Admin: 12/02/17 17:58 Dose: 200 mls/hr Dextrose/Sodium Chloride (D5-Ns -) 1,000 mls @ 100 mls/hr IV ASDIR [facility] Last Admin: 12/02/17 12:45 Dose: 100 mls/hr Ondansetron HCl (Zofran Injection) 4 mg IVPUSH Q6H PRN PRN Reason: NAUSEA Oxycodone HCl (Roxicodone -) 5 mg PO Q6H PRN PRN Reason: Pain Level 7 - 10 BREAKTHROUGH ASSESSMENT/PLAN: 52 yo M with PMHx of diverticulitis x 2, last 5 years ago w/ colonoscopy 4.5 years ago, managed conservatively admitted with Acute sigmoid diverticulitis with contained perforation with sepsis and abnormal LFTs #Sepsis 2/2 Diverticulitis with contained perforation - Advanced diet to clear liquids, so far tolerating well - IVF, received 3L boluses(12/02/17) and D/C- standing D5/NS 125ml/hr (12/02/17 ) - Cont. zosyn (Sod 4.5 gm/ Dextrose) 100 mls @ 200 mls/hr IVPB Q8H-IV- Day 3 (12/02/17) - GI and surgery onboard - ID consult - Colonoscopy as outpatient - consider reimaging in a few days? - Tylenol 1,000mg IVP q8h PRN - c/w ondansetron - f/u w/ Dr. Henderson - BCx. negative to date - encourage ambulation #Transaminitis - Likely reactive from sepsis and improving - Cont. to trend - resolving #DVT ppx: -heparin TID #Dispo: -cont. to monitor on med-surg Visit type - Emergency Visit Emergency Visit: No - New Patient This patient is new to me today: No - Critical Care Critical Care patient: No - Discharge Referral Referred to [facility] Med P.C.: No
[2017-12-03] MEDS: PIPERACILLIN/TAZOB 4.5 GM 4.5 GM in DEXTROSE 5%-WATER 100 ML IVPB SCH ×2 (01:05→09:26)
[2017-12-03] MEDS: HEPARIN NA (PORCINE) 5,000 UNITS/ML 1ML VIAL SQ SCH ×3 (06:04→22:54)
--- NOTE | 2017-12-03 08:17 | PN ---
Physical Exam: SUBJECTIVE: Patient seen and examined. No acute events overnight. Pt. endorses feeling better from yesterday. Pt. is passing gas and loose, non-bloody stool. Pt. denies nausea, vomiting and constipation. Pt. feels he is tolerating clear fluids well. OBJECTIVE: Vital Signs Period Temp Pulse Resp BP Sys/Murillo Pulse Ox Last 24 Hr 98.3 F-98.8 F 70-84 18-20 102-115/58-65 GENERAL: The patient is awake, alert, and fully oriented, in no acute distress. LUNGS: coarse breath sounds in BEV and LLL, no accessory muscle use. HEART: Regular rate and rhythm, S1, S2 without murmur, rub or gallop. ABDOMEN: Soft, nontender, nondistended, normoactive bowel sounds, no guarding, no rebound EXTREMITIES: warm, well-perfused, slight edema. PSYCH: Normal mood, normal affect. SKIN: Warm, dry, normal turgor Laboratory Results - last 24 hr 12/02/17 12/02/17 08:00 08:00 WBC 6.8 RBC 4.02 Hgb 12.2 Hct 35.9 MCV 89.3 MCH 30.4 MCHC 34.0 RDW 12.6 Plt Count 232 D MPV 9.7 Absolute Neuts (auto) 4.3 Neutrophils % 63.1 Lymphocytes % 22.1 D Monocytes % 10.5 H Eosinophils % 3.6 D Basophils % 0.7 Nucleated RBC % 0 Sodium 142 Potassium 3.6 Chloride 106 Carbon Dioxide 29 Anion Gap 7 L BUN 7 Creatinine 0.7 Creat Clearance w eGFR > 60 Random Glucose 94 Calcium 8.5 Phosphorus 3.1 Magnesium 2.2 Total Bilirubin 1.0 AST 58 H ALT 80 H D Alkaline Phosphatase 94 Total Protein 6.2 L Albumin 2.7 L Active Medications Current Medications Acetaminophen (Tylenol -) 650 mg PO Q6H PRN PRN Reason: Pain 1-10 Or Fever >101.4 Heparin Sodium (Porcine) (Heparin -) 5,000 unit SQ TID [facility] Last Admin: 12/03/17 06:04 Dose: 5,000 unit Piperacillin Sod/Tazobactam (Sod 4.5 gm/ Dextrose) 100 mls @ 200 mls/hr IVPB Q8H-IV [facility]; Protocol Last Admin: 12/03/17 01:05 Dose: 200 mls/hr Dextrose/Sodium Chloride (D5-Ns -) 1,000 mls @ 100 mls/hr IV ASDIR [facility] Last Admin: 12/02/17 21:57 Dose: 100 mls/hr Ondansetron HCl (Zofran Injection) 4 mg IVPUSH Q6H PRN PRN Reason: NAUSEA Oxycodone HCl (Roxicodone -) 5 mg PO Q6H PRN PRN Reason: Pain Level 7 - 10 BREAKTHROUGH ASSESSMENT/PLAN: 52 yo M with PMHx of diverticulitis x 2, last 5 years ago w/ colonoscopy 4.5 years ago, managed conservatively admitted with Acute sigmoid diverticulitis with contained perforation with sepsis and abnormal LFTs #Sepsis 2/2 Diverticulitis with contained perforation - Advanced diet to clear liquids, so far tolerating well - IVF, received 3L boluses(12/02/17) and D/C- standing D5/NS 125ml/hr (12/02/17 ) - Cont. zosyn (Sod 4.5 gm/ Dextrose) 100 mls @ 200 mls/hr IVPB Q8H-IV- Day 3 (12/02/17) - GI and surgery onboard - ID consult - Colonoscopy as outpatient - consider reimaging in a few days? - Tylenol 1,000mg IVP q8h PRN - c/w ondansetron - f/u w/ Dr. Henderson - BCx. negative to date - encourage ambulation #Transaminitis - Likely reactive from sepsis and improving - Cont. to trend - resolving #DVT ppx: -heparin TID #Dispo: -cont. to monitor on med-surg
[2017-12-03 08:42] LABS: BASO % 1.1 % (0-2.0); EOS % 3.4 % (0-4.5); HEMATOCRIT 36.9 % (35.4-49); HEMOGLOBIN 12.5 GM/dL (11.7-16.9); LYMPH % 24.3 % (8-40); MCH 30.3 pg (25.7-33.7); MEAN PLT VOLUME 9.4 fl (7.5-11.1); MONO % 10.1 % (3.8-10.2); NEUT % 61.1 % (42.8-82.8); PLATELET COUNT 268 K/MM3 (134-434); RBC 4.15 M/mm3 (4.00-5.60); RDW 12.4 % (11.9-15.9); WHITE BLOOD COUNT 6.5 K/mm3 (4.0-10.0)
--- NOTE | 2017-12-03 08:52 | PN ---
Progress Note, Physician Chief Complaint: resolving abdominal pain History of Present Illness: patient had no acute events overnight. states that his pain has since resolved is now a 1/10. he is tolerating his liquid diet and is anxious to eat solid foods. he denies any episodes of nausea or vomiting. his last bowel movement was noted to be last night, still watery but no blood in the diarrhea. - Current Medication List Current Medications: Active Medications Acetaminophen (Tylenol -) 650 mg PO Q6H PRN PRN Reason: Pain 1-10 Or Fever >101.4 Heparin Sodium (Porcine) (Heparin -) 5,000 unit SQ TID [facility] Last Admin: 12/03/17 06:04 Dose: 5,000 unit Piperacillin Sod/Tazobactam (Sod 4.5 gm/ Dextrose) 100 mls @ 200 mls/hr IVPB Q8H-IV [facility]; Protocol Last Admin: 12/03/17 01:05 Dose: 200 mls/hr Dextrose/Sodium Chloride (D5-Ns -) 1,000 mls @ 100 mls/hr IV ASDIR [facility] Last Admin: 12/02/17 21:57 Dose: 100 mls/hr Ondansetron HCl (Zofran Injection) 4 mg IVPUSH Q6H PRN PRN Reason: NAUSEA Oxycodone HCl (Roxicodone -) 5 mg PO Q6H PRN PRN Reason: Pain Level 7 - 10 BREAKTHROUGH - Objective Vital Signs: Vital Signs Temperature 98.3 F 12/03/17 06:43 Pulse Rate 70 12/03/17 06:43 Respiratory Rate 20 12/03/17 06:43 Blood Pressure 114/58 12/03/17 06:43 O2 Sat by Pulse Oximetry (%) 98 11/30/17 20:40 Constitutional: Yes: No Distress Eyes: No: Sclera Icterus Cardiovascular: Yes: Regular Rate and Rhythm. No: Murmur Respiratory: Yes: CTA Bilaterally Gastrointestinal: Yes: Normal Bowel Sounds, Soft, Rectal Bleeding. No: Tenderness Musculoskeletal: Yes: Back Pain Edema: No (no LE edema ) Labs: CBC, BMP 12/03/17 06:30 12/03/17 06:30 Hepatic Panel Total Bilirubin 0.7 mg/dL (0.2-1.0) 12/03/17 06:30 Direct Bilirubin 0.2 mg/dL (0.0-0.2) D 12/03/17 06:30 AST 53 U/L (15-37) H 12/03/17 06:30 ALT 87 U/L (12-78) H 12/03/17 06:30 Alkaline Phosphatase 94 U/L (45-117) 12/03/17 06:30 Albumin 2.9 g/dl (3.4-5.0) L 12/03/17 06:30 <Aaliyah Machado - Last Filed: 12/03/17 12:54> - Current Medication List Current Medications: Active Medications Acetaminophen (Tylenol -) 650 mg PO Q6H PRN PRN Reason: Pain 1-10 Or Fever >101.4 Amoxicillin/Clavulanate Potassium (Augmentin - 875mg Tablet) 1 tab PO BID@0800, 1730 ON LICENSE OF [facility] Last Admin: 12/03/17 17:22 Dose: 1 tab Heparin Sodium (Porcine) (Heparin -) 5,000 unit SQ TID ON LICENSE OF [facility] Last Admin: 12/03/17 14:01 Dose: 5,000 unit Ondansetron HCl (Zofran Injection) 4 mg IVPUSH Q6H PRN PRN Reason: NAUSEA - Objective Vital Signs: Vital Signs Temperature 97.6 F 12/03/17 15:07 Pulse Rate 76 12/03/17 15:07 Respiratory Rate 18 12/03/17 15:07 Blood Pressure 136/61 12/03/17 15:07 O2 Sat by Pulse Oximetry (%) 99 12/03/17 09:00 Labs: CBC, BMP 12/03/17 06:30 12/03/17 06:30 INR, PTT INR 1.39 (0.82-1.09) H 11/29/17 23:25 <Josué Gallego - Last Filed: 12/03/17 17:38> Problem List - Problems (1) Diverticulitis large intestine Assessment/Plan: patients symptoms are resolving and he is no longer experiencing any pain, no episodes of nausea or vomiting. -patient is tolerating clear liquid diet -continue with IV abx - follow up with colonoscopy as an outpatient in 6-8 weeks -patients hepatitis panel still pending; will trend Code(s): K57.32 - DVTRCLI OF LG INT W/O PERFORATION OR ABSCESS W/O BLEEDING Qualifiers: Diverticulitis complication: with perforation <Aaliyah Machado - Last Filed: 12/03/17 12:54> - Problems (1) Diverticulitis large intestine Assessment/Plan: ATTENDING PHYSICIAN STATEMENT I saw and evaluated the patient. I reviewed the resident's note and discussed the case with the resident. I agree with the resident's findings and plan as documented. SUBJECTIVE: No acute events States feeling well OBJECTIVE: Anicteric Abdomen: sft, +BS, NT/ND Labs: WBC: 6.5 AST: 53 ALT: 87 ASSESSMENT 1. Resolving complicated recurrent acute sigmoid diverticulitis 2. Transaminitis PLAN: 1. Diet advanced by surgery and switched to BID augmentin. Will need total of 10 days of antiobiotics including days in IV abx during admission. ow fiber diet for 1 month followed by gradula increase to high fiber diet. Will need follow-up colonoscopy in 6-8 weeks 2. Transaminitis: likely multifactorial including fatty liver and current Abx use. COntinue to monitor. Check Hepatitis B surface antibody. If negative would offer vaccination. Code(s): K57.32 - DVTRCLI OF LG INT W/O PERFORATION OR ABSCESS W/O BLEEDING Qualifiers: Diverticulitis complication: with perforation <Josué Gallego - Last Filed: 12/03/17 17:38>
[2017-12-03] MEDS ORDERED: DEXTROSE 5%-WATER 100 ML IVPB ONE (09:17)
[2017-12-03] MEDS ORDERED: PIPERACILLIN/TAZOBACTAM 4.5 GM VIAL IVPB ONE (09:17)
[2017-12-03 09:42] LABS: ALBUMIN 2.9 g/dl (3.4-5.0); ALK PHOS 94 U/L (45-117); BILIRUBIN,DIRECT 0.2 mg/dL (0.0-0.2); BILIRUBIN,TOTAL 0.7 mg/dL (0.2-1.0); SGOT/AST 53 U/L (15-37); SGPT/ALT 87 U/L (12-78); TOT PROT 6.4 g/dl (6.4-8.2)
--- NOTE | 2017-12-03 11:25 | PN ---
Progress Note, Physician History of Present Illness: feeling much better still with loose stools,with decreased frequency abd pain resolved still some distension remained afebrile - Current Medication List Current Medications: Active Medications Acetaminophen (Tylenol -) 650 mg PO Q6H PRN PRN Reason: Pain 1-10 Or Fever >101.4 Heparin Sodium (Porcine) (Heparin -) 5,000 unit SQ TID [facility] Last Admin: 12/03/17 06:04 Dose: 5,000 unit Piperacillin Sod/Tazobactam (Sod 4.5 gm/ Dextrose) 100 mls @ 200 mls/hr IVPB Q8H-IV [facility]; Protocol Last Admin: 12/03/17 09:26 Dose: 200 mls/hr Dextrose/Sodium Chloride (D5-Ns -) 1,000 mls @ 100 mls/hr IV ASDIR [facility] Last Admin: 12/02/17 21:57 Dose: 100 mls/hr Ondansetron HCl (Zofran Injection) 4 mg IVPUSH Q6H PRN PRN Reason: NAUSEA Oxycodone HCl (Roxicodone -) 5 mg PO Q6H PRN PRN Reason: Pain Level 7 - 10 BREAKTHROUGH - Objective Vital Signs: Vital Signs Temperature 98.3 F 12/03/17 06:43 Pulse Rate 70 12/03/17 06:43 Respiratory Rate 20 12/03/17 06:43 Blood Pressure 114/58 12/03/17 06:43 O2 Sat by Pulse Oximetry (%) 98 11/30/17 20:40 Constitutional: Yes: No Distress, Calm Cardiovascular: Yes: Regular Rate and Rhythm Respiratory: Yes: Regular, CTA Bilaterally Gastrointestinal: Yes: Normal Bowel Sounds, Soft Musculoskeletal: Yes: WNL Extremities: Yes: WNL Neurological: Yes: Alert, Oriented Psychiatric: Yes: Alert, Oriented Labs: CBC, BMP 12/03/17 06:30 INR, PTT INR 1.39 (0.82-1.09) H 11/29/17 23:25 Assessment/Plan Problem List - Problems (1) Diverticulitis of large intestine with perforation without abscess or bleeding Code(s): K57.20 - DVTRCLI OF LG INT W PERFORATION AND ABSCESS W/O BLEEDING (2) Dehydration Code(s): E86.0 - DEHYDRATION (3) Fever presenting with conditions classified elsewhere Code(s): R50.81 - FEVER PRESENTING WITH CONDITIONS CLASSIFIED ELSEWHERE (4) Nausea Code(s): R11.0 - NAUSEA (5) Lower abdominal pain Code(s): R10.30 - LOWER ABDOMINAL PAIN, UNSPECIFIED plan continue current mgmt await for surgery to see the patient if diet advanced by surgery and tolerated can switch to po abx augmentin to be given for another 7 days
[2017-12-03 11:36] LABS: ANION GAP 9 (8-16); BLOOD UREA NITROGEN 4 mg/dL (7-18); CALCIUM 8.9 mg/dL (8.5-10.1); CHLORIDE 105 mmol/L (98-107); CO2 28 mmol/L (21-32); GLUCOSE,RANDOM 88 mg/dL (74-106); POTASSIUM 3.5 mmol/L (3.5-5.1); SODIUM 142 mmol/L (136-145)
[2017-12-03 11:39] LABS: CREATININE 0.8 mg/dL (0.7-1.3); MAGNESIUM 2.2 mg/dL (1.8-2.4); PHOSPHOROUS 3.7 mg/dL (2.5-4.9)
[2017-12-03] MEDS: DEXTROSE 5%-NORMAL SALINE 1,000 ML IV SCH (14:01)
--- NOTE | 2017-12-03 14:09 | PN ---
Teaching Attending Note Name of Resident: Luc Tidwell ATTENDING PHYSICIAN STATEMENT I saw and evaluated the patient. I reviewed the resident's note and discussed the case with the resident. I agree with the resident's findings and plan as documented. SUBJECTIVE:tolerating liquid diet. states pain has resolved. not requiring any pain medication. had loose BM this AM. denies CP, SOB< fever, chills, N/V/C/D OBJECTIVE: Last Vital Signs Temp Pulse Resp BP Pulse Ox 98.0 F 66 18 146/67 98 12/03/17 10:00 12/03/17 10:00 12/03/17 10:00 12/03/17 10:00 11/30/17 20:40 General NAD abdomen soft NT/ND no guarding. +obese ASSESSMENT AND PLAN: 52 yom with PMHx of diverticulitis x 2, last 5 years ago, managed conservatively admitted with Acute sigmoid diverticulitis with contained perforation with sepsis and abnormal LFTs 1. Sepsis due to Acute complicated sigmoid diverticulitis with contained microperforation and adjacent phlegmon- clinically stable. pain now resolved. tolerating liquids. will d/w surgery about advancing diet and repeat imaging, possible tomorrow? can d/c IVF. on zosyn day 4. explained to pt if develops worsening pain will need to stop eating. pain control. Surgery, GI and ID on board. all cx negative. will need colonoscopy in 4-6weeks 2. Abnormal LFTs, ?sepsis,vs hepatic steatosis (normal LFTs in 06/2017)- u/s showing fatty infiltration. hepatitits panel negative. LFT stable 3. DVT ppx- hep sq
--- NOTE | 2017-12-03 15:38 | PN ---
Progress Note, Physician History of Present Illness: Pt with sigmoid diverticulitis with contained perforation. Seen and examined in room sitting up in chair. Continues to feel better, no pain at this point. Appears comfortable and in good spirits. Tolerated diet for lunch. Small BM earlier, not really formed yet. Feels a bit bloated. Ambulating well. - Current Medication List Current Medications: Active Medications Acetaminophen (Tylenol -) 650 mg PO Q6H PRN PRN Reason: Pain 1-10 Or Fever >101.4 Amoxicillin/Clavulanate Potassium (Augmentin - 875mg Tablet) 1 tab PO BID@0800, 1730 [facility] Heparin Sodium (Porcine) (Heparin -) 5,000 unit SQ TID [facility] Last Admin: 12/03/17 14:01 Dose: 5,000 unit Ondansetron HCl (Zofran Injection) 4 mg IVPUSH Q6H PRN PRN Reason: NAUSEA Oxycodone HCl (Roxicodone -) 5 mg PO Q6H PRN PRN Reason: Pain Level 7 - 10 BREAKTHROUGH - Objective Vital Signs: Vital Signs Temperature 97.6 F 12/03/17 15:07 Pulse Rate 76 12/03/17 15:07 Respiratory Rate 18 12/03/17 15:07 Blood Pressure 136/61 12/03/17 15:07 O2 Sat by Pulse Oximetry (%) 98 11/30/17 20:40 Constitutional: Yes: No Distress, Calm, Obese Eyes: Yes: Conjunctiva Clear, EOM Intact HENT: Yes: Atraumatic, Normocephalic Gastrointestinal: Yes: Soft, Abdomen, Obese. No: Tenderness Musculoskeletal: Yes: Back Pain (chronic). No: Joint Stiffness, Joint Swelling Extremities: No: Cool, Cyanosis Integumentary: Yes: Tattoos. No: Jaundice, Rash Neurological: Yes: Alert, Oriented Labs: CBC, BMP 12/03/17 06:30 12/03/17 06:30 CMP Sodium 142 mmol/L (136-145) 12/03/17 06:30 Potassium 3.5 mmol/L (3.5-5.1) 12/03/17 06:30 Chloride 105 mmol/L (98-107) 12/03/17 06:30 Carbon Dioxide 28 mmol/L (21-32) 12/03/17 06:30 Anion Gap 9 (8-16) 12/03/17 06:30 BUN 4 mg/dL (7-18) L 12/03/17 06:30 Creatinine 0.8 mg/dL (0.7-1.3) 12/03/17 06:30 Creat Clearance w eGFR > 60 (>60) 12/03/17 06:30 Random Glucose 88 mg/dL (74-106) 12/03/17 06:30 Hemoglobin A1c % 5.0 % (4.8-6.0) 11/30/17 12:30 Lactic Acid 1.3 mmol/L (0.0-2.0) 11/29/17 18:10 Calcium 8.9 mg/dL (8.5-10.1) 12/03/17 06:30 Phosphorus 3.7 mg/dL (2.5-4.9) 12/03/17 06:30 Magnesium 2.2 mg/dL (1.8-2.4) 12/03/17 06:30 Total Bilirubin 0.7 mg/dL (0.2-1.0) 12/03/17 06:30 Direct Bilirubin 0.2 mg/dL (0.0-0.2) D 12/03/17 06:30 AST 53 U/L (15-37) H 12/03/17 06:30 ALT 87 U/L (12-78) H 12/03/17 06:30 Alkaline Phosphatase 94 U/L (45-117) 12/03/17 06:30 Total Protein 6.4 g/dl (6.4-8.2) 12/03/17 06:30 Albumin 2.9 g/dl (3.4-5.0) L 12/03/17 06:30 Lipase 77 U/L (73-393) 11/29/17 17:53 LFTs almost normal, bili normal Problem List - Problems (1) Diverticulitis of large intestine with perforation without abscess or bleeding Assessment/Plan: pain, tenderness resolved LFTs nearly normalized ok for low-fiber diet - to transition to high-fiber at home in ~2-3 weeks OOB/ambulation/IS GI consult noted will need colonoscopy 6-8 weeks after resolution (last 5 yrs ago) improved with conservative measures change to PO antibiotics tonight, complete course as per ID on discharge tomorrow if doing well on diet Code(s): K57.20 - DVTRCLI OF LG INT W PERFORATION AND ABSCESS W/O BLEEDING (2) Fever presenting with conditions classified elsewhere Assessment/Plan: no fever at least 24 hrs Code(s): R50.81 - FEVER PRESENTING WITH CONDITIONS CLASSIFIED ELSEWHERE (3) Elevated liver function tests Assessment/Plan: improved, nearly normal, bili is normal hep panel negative US shows likely fatty liver most likely related to biliary stasis - pt had not eaten much for 4-5 days [facility] Code(s): R94.5 - ABNORMAL RESULTS OF LIVER FUNCTION STUDIES
[2017-12-03] MEDS: AMOX TR/POT CLAV 875MG/125MG TABLETS (FP) PO SCH (17:22)
--- NOTE | 2017-12-03 17:45 | PN ---
Physical Exam: SUBJECTIVE: Patient seen and examined. No acute events overnight, no complaints per nurse. Pt. endorses feeling better. He is able to pass gas, was tolerating clear fluids, is tolerating low fiber diet. Pt. endorses passing gas and loose non-bloody stool. OBJECTIVE: Vital Signs Period Temp Pulse Resp BP Sys/Murillo Pulse Ox Last 24 Hr 97.6 F-98.5 F 66-76 18-20 114-146/58-67 99 GENERAL: The patient is awake, alert, and fully oriented, in no acute distress. LUNGS: coarse breath sounds on left side of chest, no accessory muscle use. HEART: Regular rate and rhythm, S1, S2 without murmur, rub or gallop. ABDOMEN: Soft, nontender, nondistended, normoactive bowel sounds, no guarding, no rebound EXTREMITIES: 1+ pulses, warm, no calf pain, well-perfused, slight edema. PSYCH: Normal mood, normal affect. SKIN: Warm, dry, normal turgor Laboratory Results - last 24 hr 12/03/17 12/03/17 12/03/17 06:30 06:30 06:30 WBC 6.5 RBC 4.15 Hgb 12.5 Hct 36.9 MCV 89.0 MCH 30.3 MCHC 34.0 RDW 12.4 Plt Count 268 MPV 9.4 Absolute Neuts (auto) 4.0 Neutrophils % 61.1 Lymphocytes % 24.3 Monocytes % 10.1 Eosinophils % 3.4 Basophils % 1.1 Nucleated RBC % 0 Sodium 142 Cancelled Potassium 3.5 Cancelled Chloride 105 Cancelled Carbon Dioxide 28 Cancelled Anion Gap 9 Cancelled BUN 4 L Cancelled Creatinine 0.8 Cancelled Creat Clearance w eGFR > 60 Cancelled Random Glucose 88 Cancelled Calcium 8.9 Cancelled Phosphorus 3.7 Cancelled Magnesium 2.2 Cancelled Total Bilirubin 0.7 Cancelled Direct Bilirubin 0.2 D AST 53 H Cancelled ALT 87 H Cancelled Alkaline Phosphatase 94 Cancelled Total Protein 6.4 Cancelled Albumin 2.9 L Cancelled Active Medications Current Medications Acetaminophen (Tylenol -) 650 mg PO Q6H PRN PRN Reason: Pain 1-10 Or Fever >101.4 Amoxicillin/Clavulanate Potassium (Augmentin - 875mg Tablet) 1 tab PO BID@0800, 1730 [facility] Last Admin: 12/03/17 17:22 Dose: 1 tab Heparin Sodium (Porcine) (Heparin -) 5,000 unit SQ TID [facility] Last Admin: 12/03/17 14:01 Dose: 5,000 unit Ondansetron HCl (Zofran Injection) 4 mg IVPUSH Q6H PRN PRN Reason: NAUSEA ASSESSMENT/PLAN: 52 yo M with PMHx of diverticulitis x 2, last 5 years ago w/ colonoscopy 4.5 years ago, managed conservatively admitted with Acute sigmoid diverticulitis with contained perforation with sepsis and abnormal LFTs #Sepsis 2/2 Diverticulitis with contained perforation - Advanced diet to low fiber, so far tolerating well - IVF, received 3L boluses(12/02/17) and D/C- standing D5/NS 125ml/hr (12/02/17 ) - D/C zosyn (Sod 4.5 gm/ Dextrose) 100 mls @ 200 mls/hr IVPB Q8H-IV- Day 4 ( 12/03/17) - GI and surgery onboard - ID consult - Colonoscopy as outpatient - Tylenol 1,000mg IVP q8h PRN - c/w ondansetron - f/u w/ Dr. Henderson - BCx. negative to date - encourage ambulation - Start Abx. to Augmentin 875mg tablet PO BID (12/03/17)- Day 4 of Abx. - No need to monitor labs any longer - No need for repeat imaging #Transaminitis - Likely reactive from sepsis and improving - resolved #DVT ppx: -heparin TID #Dispo: -discharge to home Visit type - Emergency Visit Emergency Visit: No - New Patient This patient is new to me today: No - Critical Care Critical Care patient: No - Discharge Referral Referred to [facility] Med P.C.: No
[2017-12-04] MEDS: HEPARIN NA (PORCINE) 5,000 UNITS/ML 1ML VIAL SQ SCH ×2 (05:46→15:03)
[2017-12-04] MEDS ORDERED: PT OWN MED DRAWER 7, Y5N ONE (07:16)
--- NOTE | 2017-12-04 08:03 | PN ---
Progress Note, Physician History of Present Illness: Pt with sigmoid diverticulitis with contained perforation. Seen and examined in room sitting up in chair. Feeling well. Tolerating diet, ambulating. Loose stools still. No pain. - Current Medication List Current Medications: Active Medications Acetaminophen (Tylenol -) 650 mg PO Q6H PRN PRN Reason: Pain 1-10 Or Fever >101.4 Amoxicillin/Clavulanate Potassium (Augmentin - 875mg Tablet) 1 tab PO BID@0800, 1730 [facility] Last Admin: 12/03/17 17:22 Dose: 1 tab Heparin Sodium (Porcine) (Heparin -) 5,000 unit SQ TID [facility] Last Admin: 12/04/17 05:46 Dose: 5,000 unit Ondansetron HCl (Zofran Injection) 4 mg IVPUSH Q6H PRN PRN Reason: NAUSEA - Objective Vital Signs: Vital Signs Temperature 98.5 F 12/04/17 06:19 Pulse Rate 65 12/04/17 06:19 Respiratory Rate 20 12/04/17 06:19 Blood Pressure 127/70 12/04/17 06:19 O2 Sat by Pulse Oximetry (%) 99 12/03/17 21:00 Constitutional: Yes: No Distress, Calm, Obese Eyes: Yes: Conjunctiva Clear, EOM Intact HENT: Yes: Atraumatic, Normocephalic Gastrointestinal: Yes: Normal Bowel Sounds, Soft, Abdomen, Obese. No: Tenderness ...Rectal Exam: Yes: Deferred Extremities: No: Cool, Cyanosis Integumentary: Yes: Tattoos. No: Jaundice, Rash Neurological: Yes: Alert, Oriented Labs: no new labs Problem List - Problems (1) Diverticulitis of large intestine with perforation without abscess or bleeding Assessment/Plan: pain, tenderness resolved low-fiber diet - to transition to high-fiber at home in ~2-3 weeks OOB/ambulation/IS GI followup needed within few weeks to schedule colonoscopy 6-8 weeks after resolution (last 5 yrs ago) pt needs referral to PMD to f/u in 1-2 weeks improved with conservative measures Augmentin to complete course at home - duration per ID gave pt my card to f/u as desired after colonoscopy to discuss possible elective resection Code(s): K57.20 - DVTRCLI OF LG INT W PERFORATION AND ABSCESS W/O BLEEDING (2) Fever presenting with conditions classified elsewhere Assessment/Plan: resolved Code(s): R50.81 - FEVER PRESENTING WITH CONDITIONS CLASSIFIED ELSEWHERE (3) Elevated liver function tests Assessment/Plan: essentially normalized hep panel negative US shows likely fatty liver most likely related to biliary stasis - pt had not eaten much for 4-5 days [facility] followup Code(s): R94.5 - ABNORMAL RESULTS OF LIVER FUNCTION STUDIES
[2017-12-04] MEDS: AMOX TR/POT CLAV 875MG/125MG TABLETS (FP) PO SCH (08:12)
--- NOTE | 2017-12-04 09:06 | PN ---
Progress Note, Physician History of Present Illness: stable no new issues no complaints no abd pain still with loose stools tolerating diet - Current Medication List Current Medications: Active Medications Acetaminophen (Tylenol -) 650 mg PO Q6H PRN PRN Reason: Pain 1-10 Or Fever >101.4 Amoxicillin/Clavulanate Potassium (Augmentin - 875mg Tablet) 1 tab PO BID@0800, 1730 [facility] Last Admin: 12/04/17 08:12 Dose: 1 tab Heparin Sodium (Porcine) (Heparin -) 5,000 unit SQ TID [facility] Last Admin: 12/04/17 05:46 Dose: 5,000 unit Ondansetron HCl (Zofran Injection) 4 mg IVPUSH Q6H PRN PRN Reason: NAUSEA - Objective Vital Signs: Vital Signs Temperature 98.5 F 12/04/17 06:19 Pulse Rate 65 12/04/17 06:19 Respiratory Rate 20 12/04/17 06:19 Blood Pressure 127/70 12/04/17 06:19 O2 Sat by Pulse Oximetry (%) 99 12/03/17 21:00 Constitutional: Yes: No Distress, Calm Cardiovascular: Yes: Regular Rate and Rhythm Respiratory: Yes: Regular, CTA Bilaterally Gastrointestinal: Yes: Normal Bowel Sounds, Soft Musculoskeletal: Yes: WNL Extremities: Yes: WNL Labs: CBC, BMP 12/03/17 06:30 12/03/17 06:30 INR, PTT INR 1.39 (0.82-1.09) H 11/29/17 23:25 Assessment/Plan Problem List - Problems (1) Diverticulitis of large intestine with perforation without abscess or bleeding Code(s): K57.20 - DVTRCLI OF LG INT W PERFORATION AND ABSCESS W/O BLEEDING (2) Dehydration Code(s): E86.0 - DEHYDRATION (3) Fever presenting with conditions classified elsewhere Code(s): R50.81 - FEVER PRESENTING WITH CONDITIONS CLASSIFIED ELSEWHERE (4) Nausea Code(s): R11.0 - NAUSEA (5) Lower abdominal pain Code(s): R10.30 - LOWER ABDOMINAL PAIN, UNSPECIFIED plan continue current mgmt doing well tolerating diet can switch to po abx augmentin to be given for another 7 days
--- NOTE | 2017-12-04 13:19 | PN ---
Teaching Attending Note Name of Resident: Luc Tidwell ATTENDING PHYSICIAN STATEMENT I saw and evaluated the patient. I reviewed the resident's note and discussed the case with the resident. I agree with the resident's findings and plan as documented. SUBJECTIVE:pain has resolved. tolerating diet. states BM today was more formed than yesterday. denies Cp, SOB, fever, chills, N/V/C/D OBJECTIVE: Last Vital Signs Temp Pulse Resp BP Pulse Ox 98.6 F 72 20 103/51 99 12/04/17 10:00 12/04/17 10:00 12/04/17 10:00 12/04/17 10:12/04/17 09:00 General NAD abdomen soft NT/ND no guarding. +obese ASSESSMENT AND PLAN: 52 yom with PMHx of diverticulitis x 2, last 5 years ago, managed conservatively admitted with Acute sigmoid diverticulitis with contained perforation with sepsis and abnormal LFTs 1. Sepsis due to Acute complicated sigmoid diverticulitis with contained microperforation and adjacent phlegmon- clinically stable. pain now resolved. tolerating diet. cont with low fiber diet for 4 weeks than increase to high fiber diet. abx switched to augmentin x1 week. can have CT scan follow up as outpatient per surgery. will need colonoscopy in 4-6weeks 2. Abnormal LFTs, ?sepsis,vs hepatic steatosis (normal LFTs in 06/2017)- u/s showing fatty infiltration. hepatitits panel negative. LFT stable 3. DVT ppx- hep sq 4. d/c home
--- NOTE | 2017-12-04 14:01 | DS ---
Physical Exam: SUBJECTIVE: Patient seen and examined. No acute events overnight. Pt. endorses feeling better, passing urine, tolerating PO food, and having a bowel movement with loose and formed stool. Pt. denies chest pain, shortness of breath and fever. OBJECTIVE: Vital Signs Period Temp Pulse Resp BP Sys/Murillo Pulse Ox Last 24 Hr 97.6 F-98.9 F 65-81 18-20 103-143/51-89 99-99 PHYSICAL EXAM GENERAL: The patient is awake, alert, and fully oriented, in no acute distress. LUNGS: Breath sounds equal, clear to auscultation bilaterally, no wheezes, no crackles, no accessory muscle use. HEART: Regular rate and rhythm, S1, S2 without murmur ABDOMEN: Soft, nontender, nondistended, normoactive bowel sounds, no guarding, no rebound EXTREMITIES: warm, well-perfused, no edema, no calf pain. PSYCH: Normal mood, normal affect. SKIN: Warm, dry, normal turgor LABS CBCD WBC 6.5 K/mm3 (4.0-10.0) 12/03/17 06:30 RBC 4.15 M/mm3 (4.00-5.60) 12/03/17 06:30 Hgb 12.5 GM/dL (11.7-16.9) 12/03/17 06:30 Hct 36.9 % (35.4-49) 12/03/17 06:30 MCV 89.0 fl (80-96) 12/03/17 06:30 MCHC 34.0 g/dl (32.0-35.9) 12/03/17 06:30 RDW 12.4 % (11.9-15.9) 12/03/17 06:30 Plt Count 268 K/MM3 (134-434) 12/03/17 06:30 MPV 9.4 fl (7.5-11.1) 12/03/17 06:30 CMP Sodium 142 mmol/L (136-145) 12/03/17 06:30 Potassium 3.5 mmol/L (3.5-5.1) 12/03/17 06:30 Chloride 105 mmol/L (98-107) 12/03/17 06:30 Carbon Dioxide 28 mmol/L (21-32) 12/03/17 06:30 Anion Gap 9 (8-16) 12/03/17 06:30 BUN 4 mg/dL (7-18) L 12/03/17 06:30 Creatinine 0.8 mg/dL (0.7-1.3) 12/03/17 06:30 Creat Clearance w eGFR > 60 (>60) 12/03/17 06:30 Calcium 8.9 mg/dL (8.5-10.1) 12/03/17 06:30 Total Bilirubin 0.7 mg/dL (0.2-1.0) 12/03/17 06:30 AST 53 U/L (15-37) H 12/03/17 06:30 ALT 87 U/L (12-78) H 12/03/17 06:30 Alkaline Phosphatase 94 U/L (45-117) 12/03/17 06:30 Total Protein 6.4 g/dl (6.4-8.2) 12/03/17 06:30 Albumin 2.9 g/dl (3.4-5.0) L 12/03/17 06:30 HOSPITAL COURSE: Date of Admission:11/30/17 Date of Discharge: 12/04/17 Pre-hospital: 52 yo M h/o recurrent diverticulitis, last being in 5 years ago ( last colonoscopy 4.5 years ago), presented to the ED with lower abdominal pain x 5 days. It started on Friday night all of sudden unrelated to food, from the lower part of abdomen, non-radiating, pressure like, intermittent, 7/10, a/w fever and chills, worse with sitting up or food. He can't remember what the last colonoscopy showed. Denies chest pain, shortness of breath, n/v, urinary sx , sick contact or travel. Hospital: Pt. had a CTAP which showed hepatomegaly with mild fatty infiltration , and a 2.8cm extraluminal air consistent with contained microperforation in the proximal/mid-sigmoid colon confirming the diagnosis of diverticulitis. Pt. was placed on NPO, IV Fluids and Zosyn. Pt.s diet was advanced based on clinical symptoms. Pt.s labs were trended. LFTs trended down. Pt. was able to tolerate PO low-fiber diet and passed non-bloody stool and urine. Pt. was consulted with by Infectious disease and General Surgery. Pt. was placed on oral antibiotic, Augmentin for a 7 day course. Pt was educated on following up with PCP and with [facility] for colonoscopy in 6-8 weeks. Pt. was educated on low fiber diet for 1 month and then switching to a high fiber diet. Pt. was able to relay all information and is cleared for discharge. Minutes to complete discharge: 33 Discharge Summary Reason For Visit: DIVERTICULITIS OF LARGE INTESTINE Current Active Problems Dehydration (Acute) Diverticulitis large intestine (Acute) Diverticulitis of large intestine with perforation without abscess or bleeding ( Acute) Fever presenting with conditions classified elsewhere (Acute) Lower abdominal pain (Acute) Nausea (Acute) Condition: Guarded - Instructions Diet, Activity, Other Instructions: You were treated for an infection of your intestines(diverticulitis). You were given antibiotics in the hospital to treat the infection. You were given Augmentin to take by mouth at home. For the next few weeks eat a low fiber diet. Then you should increase your fiber. 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 Please take the medications as prescribed, ONE in the morning, ONE in the evening. Your last dose of antibiotics is December 10, 2017. Please take all the pills to completion even if you feel better. Follow up with your Primary Care Physician(PCP) in 1 week. If you do not have a PCP contact information is provided for [facility]: [address] [place] [address] [address] (Tel.) [phone]. Follow up with colonoscopy as an outpatient in 6-8 weeks Follow up in surgeon in 1 week. Referrals: [facility] [place] [Provider Group] - 1 Week (Ask for Dr Luc Tidwell - on Friday Mornings) Berhane Jacobs MD [Staff Physician] - 1 Week Candido Henderson MD [Staff Physician] - 1 Week - Home Medications Comprehensive Discharge Medication List: Ambulatory Orders Ibuprofen [Motrin -] 800 mg PO PRN 12/01/17 Metaxalone [Metaxall] 800 mg PO DAILY 12/01/17 Amox-Tr/K Cl [Augmentin 875-125mg Tablet -] 1 tab PO BID@0800,1730 #11 tablet This patient is new to me today: No Emergency Visit: Yes ED Registration Date: 11/30/17 Care time: The patient presented to the Emergency Department on the above date and was hospitalized for further evaluation of their emergent condition. Critical Care patient: No - Discharge Referral Referred to [facility] No
[2017-12-04 15:11] VITALS: BP 123/65; PULSE 68; TEMP 98.3
== END 2017-12-04 18:14 | disposition home or self-care (01) | DRG 720 ==
LOC: JER 16:59 → JERBED 11-30 00:02 → J8W 11-30 02:25
PROVIDERS: ADMIT Internal Medicine; ATTEND Internal Medicine
DX: A41.9 Sepsis, unspecified organism (principal); R74.0 Nonspecific elevation of levels of transaminase and lactic acid dehydrogenase [LDH]; E86.0 Dehydration; R50.9 Fever, unspecified; R11.0 Nausea; R10.30 Lower abdominal pain, unspecified; E66.9 Obesity, unspecified; Z68.37 Body mass index [BMI] 37.0-37.9, adult; R00.0 Tachycardia, unspecified; K57.80 Diverticulitis of intestine, part unspecified, with perforation and abscess without bleeding; K76.0 Fatty (change of) liver, not elsewhere classified; R16.0 Hepatomegaly, not elsewhere classified
CPT/HCPCS: 36415; 74177-TC; 76705-TC; 80048; 80053; 80074; 80076; 81003; 81015; 82248; 83036; 83605; 83690; 83735; 84100; 85025; 85610; 85730; 86850; 86900; 86901; 87040; 93005; 93010; 94010; 99285-25; J0131; J1644; J7030

== ENCOUNTER 2018-01-20 09:21 | Day surgery (SDC) | payer OTHER ==
[2018-01-19 13:06] VITALS: BMI 35.6
[2018-01-20 09:55] VITALS: TEMP 98.4
[2018-01-20] MEDS ORDERED: LIDOCAINE 1% P/F 10 MG/ML VIAL PNB ONE (11:30)
[2018-01-20] MEDS ORDERED: PROPOFOL 20 ML ONE (11:35)
[2018-01-20] MEDS ORDERED: LIDOCAINE HCL/PF 2% SDV 5ML VIAL ONE (11:36)
[2018-01-20] MEDS ORDERED: BUPIVACAINE HCL/PF 0.5% (5MG/ML) 10 ML VIAL IJ ONE (11:50)
[2018-01-20] MEDS ORDERED: BETAMET ACET/BETAMET NA PH 30 MG/5 ML VIAL IM ONE (11:50)
[2018-01-20] MEDS ORDERED: IOHEXOL 180 MG/1 ML ML IJ ONE (11:50)
[2018-01-20 14:43] VITALS: BP 127/81; PULSE 85
--- NOTE | 2018-01-21 00:13 | PROC ---
Procedure Note Procedure: Date of service: 01/20/2018 Preoperative Diagnosis: Low back pain and lumbar radiculopathy on Left Postoperative Diagnosis: Same Procedure Performed: Lumbar Epidural Steroid Injection (LESI) on Left L4-5 with dye under Fluoroscopy Anesthesia: Local / MAC Anesthesiologist: Dr Ramirez Procedure: I discussed with the patient in detail about the risks, benefits, and alternatives to treatment not only limited to infection, headache, numbness , weakness, and injury to nerves, blood vessels and muscles. The patient understood, agreed and signed the written consent. The patient was placed in the prone position with the head, abdomen and legs supported with the pillows. The lumbosacral area was prepped and draped with Betadine times three in a sterile fashion. Lumbar vertebrae were identified under the C-arm. At L4-5 level on the Left side, 3 ml of 1 % Lidocaine was infiltrated into the skin and subcutaneous tissue. A 3 inch, #20 gauge Tuohy needle was advanced to the epidural space with loss of resistance technique under fluoroscopic guidance. Aspiration was negative for cerebrospinal fluid and blood. 2ml of Omnipaque ( radio-opaque dye) was injected to confirm the tip of the needle into epidural space and spread of dye. There was no CSF or vascular spread. The spread of dye was noted cranially and caudally on epidurogram. Aspiration was done again which was negative. A solution of 2.5 ml of Celestone and 2.5 ml of 0.25% Marcaine and a total of 5 ml was injected slowly. While Tuohy needle was withdrawn 2.0 ml of 1 % Lidocaine was infiltrated. Bleeding was checked. Betadine was wiped off. A sterile bandage was placed. The patient tolerated the procedure well. There were no immediate complications. The patient was transferred to the recovery room. The patient was observed for some time and discharged as per ASU criteria. The patient was told to apply ice at the injection site. Follow up appointment was given and also call my office at . If there is any problem, call my office or report to Emergency Room. Slava Beltran M.D.
== END 2018-01-20 14:35 | disposition home or self-care (01) ==
LOC: JASU-SURG 09:21
PROVIDERS: ATTEND Physical Medicine & Rehabilitation
PROC: 3E0R33Z Introduction of Anti-inflammatory into Spinal Canal, Percutaneous Approach (ICD-10-PCS; 2018-01-20)
PROC: B01BYZZ Fluoroscopy of Spinal Cord using Other Contrast (ICD-10-PCS; 2018-01-20)
PROC: 3E0R3BZ Introduction of Anesthetic Agent into Spinal Canal, Percutaneous Approach (ICD-10-PCS; principal; 2018-01-20 12:00)
DX: M54.16 Radiculopathy, lumbar region (principal); M54.5 Low back pain
CPT/HCPCS: 76000-TC-FY

== ENCOUNTER 2022-08-05 10:11 | Emergency (ER) | payer OTHER ==
[2022-08-05 10:19] VITALS: TEMP 98.1; BMI 40.7
[2022-08-05] MEDS ORDERED: SODIUM CHLORIDE 0.9% 500 ML INFUS.BAG IV ONE (11:11)
[2022-08-05] MEDS ORDERED: ACETAMINOPHEN 1000 MG/100 ML BAG IVPB ONE (11:11)
[2022-08-05] MEDS ORDERED: ACETAMINOPHEN INJECTION 100 ML IVPB ONE (11:32)
[2022-08-05 12:59] LABS: BASO % 0.5 % (0-2.0); EOS % 0.3 % (0-4.5); HEMATOCRIT 41.7 % (35.4-49); HEMOGLOBIN 13.6 GM/dL (11.7-16.9); LYMPH % 11.6 % (8-40); MCH 28.7 pg (25.7-33.7); MCHC 32.7 g/dl (32.0-35.9); MEAN CELL VOLUME 87.8 fl (80-96); MEAN PLT VOLUME 10.4 fl (7.5-11.1); NEUT % 79.6 % (42.8-82.8); PLATELET COUNT 267 10^3/uL (134-434); RBC 4.75 M/mm3 (4.00-5.60); RDW 13.3 % (11.9-15.9); WHITE BLOOD COUNT 12.7 K/mm3 (4.0-10.0)
[2022-08-05 13:12] LABS: ALBUMIN 3.5 g/dl (3.4-5.0); CALCIUM 9.6 mg/dL (8.5-10.1)
[2022-08-05 13:13] LABS: BLOOD UREA NITROGEN 14.3 mg/dL (7-18)
[2022-08-05 13:15] LABS: CREATININE 0.9 mg/dL (0.55-1.3)
[2022-08-05 13:17] LABS: BILIRUBIN,TOTAL 1.1 mg/dL (0.2-1); TOT PROT 7.2 g/dl (6.4-8.2)
[2022-08-05 16:51] LABS: URINE APPEARANCE CLEAR; URINE BILIRUBIN NEGATIVE (NEGATIVE); URINE COLOR YELLOW; URINE GLUCOSE (UA) NEGATIVE (NEGATIVE); URINE KETONE NEGATIVE (NEGATIVE); URINE LEUK ESTERASE NEGATIVE (NEGATIVE); URINE NITRITE NEGATIVE (NEGATIVE); URINE PROTEIN NEGATIVE (NEGATIVE); URINE UROBILINOGEN 0.2 mg/dL (0.2-1.0)
[2022-08-05 17:19] VITALS: BP 132/78; PULSE 71; RESP 18
== END 2022-08-05 17:19 | disposition home or self-care (01) ==
LOC: JER 10:11
PROC: 3E033NZ Introduction of Analgesics, Hypnotics, Sedatives into Peripheral Vein, Percutaneous Approach (ICD-10-PCS; principal; 2022-08-05)
DX: K57.32 Diverticulitis of large intestine without perforation or abscess without bleeding (principal)
CPT/HCPCS: 36415; 74177-TC; 80053; 81003; 83690; 85025; 99285-25; Q9967

== ENCOUNTER 2022-08-22 03:17 | Inpatient (IN) | payer OTHER ==
[2022-08-22] MEDS ORDERED: ACETAMINOPHEN 1000 MG/100 ML BAG IVPB ONE (03:54)
[2022-08-22] MEDS ORDERED: ACETAMINOPHEN INJECTION 100 ML IVPB ONE (04:07)
[2022-08-22] MEDS ORDERED: SODIUM CHLORIDE 0.9% 500 ML INFUS.BAG IV ONE ×2 (04:16→06:25)
[2022-08-22] MEDS ORDERED: dilTIAZem HCL 50 MG/10 ML - 10 ML VIAL IVPUSH ONE ×5 (04:55→08:03)
[2022-08-22] MEDS ORDERED: dilTIAZem HCL 50 MG/10 ML - 10 ML VIAL IVPUSH PRN (04:57)
[2022-08-22] MEDS ORDERED: dilTIAZem HCL 125 MG/25 ML - 25 ML VIAL ONE ×2 (05:00→06:19)
[2022-08-22 05:43] LABS: BASO % 0.4 % (0-2.0); EOS % 0.7 % (0-4.5); HEMATOCRIT 37.8 % (35.4-49); LYMPH % 17.6 % (8-40); MCH 30.1 pg (25.7-33.7); MCHC 34.5 g/dl (32.0-35.9); MEAN CELL VOLUME 87.2 fl (80-96); MEAN PLT VOLUME 11.6 fl (7.5-11.1); MONO % 10.9 % (3.8-10.2); NEUT % 70.4 % (42.8-82.8); PLATELET COUNT 185 10^3/uL (134-434); RBC 4.34 M/mm3 (4.00-5.60); RDW 13.6 % (11.9-15.9); WHITE BLOOD COUNT 10.5 K/mm3 (4.0-10.0)
[2022-08-22] MEDS ORDERED: LIDOCAINE 5% TOPICAL PATCH TP ONE (05:48)
[2022-08-22 05:53] LABS: CALCIUM 8.8 mg/dL (8.5-10.1)
[2022-08-22 05:54] LABS: ALBUMIN 3.3 g/dl (3.4-5.0); BLOOD UREA NITROGEN 25.7 mg/dL (7-18)
[2022-08-22 05:57] LABS: CREATININE 1.1 mg/dL (0.55-1.3)
[2022-08-22 05:58] LABS: BILIRUBIN,TOTAL 1.7 mg/dL (0.2-1)
[2022-08-22 05:59] LABS: TOT PROT 6.8 g/dl (6.4-8.2)
[2022-08-22] MEDS ORDERED: LIDOCAINE 5% TOPICAL PATCH ONE (05:59)
[2022-08-22 06:34] LABS: ACTIVATED PTT 35.9 SECONDS (25.2-36.5); INR 1.43 (0.83-1.09); PROTHROMBIN TIME (PATIENT) 16.5 SEC (9.7-13.0)
[2022-08-22] MEDS ORDERED: PIPERACILLIN/TAZOB 4.5 GM 4.5 GM in DEXTROSE 5%-WATER 100 ML IVPB ONE (07:33)
[2022-08-22] MEDS ORDERED: PIPERACILLIN/TAZOB 4.5 GM 4.5 GM/100 ML BAG IVPB ONE (07:57)
[2022-08-22 08:04] LABS: URINE APPEARANCE CLEAR; URINE BILIRUBIN NEGATIVE (NEGATIVE); URINE COLOR YELLOW; URINE GLUCOSE (UA) NEGATIVE (NEGATIVE); URINE KETONE NEGATIVE (NEGATIVE); URINE LEUK ESTERASE NEGATIVE (NEGATIVE); URINE NITRITE NEGATIVE (NEGATIVE); URINE PROTEIN NEGATIVE (NEGATIVE)
[2022-08-22] MEDS ORDERED: ENOXAPARIN NA (PORCINE) 120 MG/0.8 ML DISP.SYRIN SQ SCH (08:15)
[2022-08-22] MEDS ORDERED: dilTIAZem HCL 50 MG/10 ML - 10 ML VIAL ONE (08:30)
[2022-08-22] MEDS ORDERED: ENOXAPARIN NA (PORCINE) 80 MG/0.8 ML DISP.SYRIN SQ ONE (08:45)
[2022-08-22] MEDS ORDERED: ENOXAPARIN 120 MG, ENOXAPARIN 30 MG SQ ONE (08:45)
[2022-08-22] MEDS ORDERED: ENOXAPARIN NA (PORCINE) 30 MG/0.3 ML DISP.SYRIN SQ ONE (08:45)
[2022-08-22] MEDS ORDERED: MUPIROCIN 2% TOPICAL OINTMENT FOR DECOLONIZATION NS SCH (10:00)
[2022-08-22] MEDS ORDERED: ENOXAPARIN NA (PORCINE) 40 MG/0.4 ML DISP.SYRIN SQ SCH ×2 (10:00→22:00)
[2022-08-22 13:00] VITALS: BMI 39.4
[2022-08-22] MEDS: ASPIRIN COATED 81 MG TABLET.EC PO SCH (13:14)
[2022-08-22] MEDS: ACETAMINOPHEN 325 MG TABLET (FP) PO PRN ×2 (13:14→21:33)
[2022-08-22] MEDS: LIDOCAINE PATCH REMOVAL MC SCH (21:36)
[2022-08-22] MEDS ORDERED: CHLORHEXIDINE GLUCONATE 4% CLEANSER FOR DECOLONIZATION TP SCH (22:00)
[2022-08-23 08:05] LABS: CALCIUM 8.4 mg/dL (8.5-10.1)
[2022-08-23 08:06] LABS: BLOOD UREA NITROGEN 15.7 mg/dL (7-18); MAGNESIUM 2.2 mg/dL (1.8-2.4)
[2022-08-23] MEDS: LIDOCAINE PATCH REMOVAL MC SCH ×4 (08:06→22:36)
[2022-08-23 08:09] LABS: CREATININE 0.8 mg/dL (0.55-1.3)
[2022-08-23 08:26] LABS: HEMATOCRIT 36.9 % (35.4-49); HEMOGLOBIN 12.7 GM/dL (11.7-16.9); MCHC 34.3 g/dl (32.0-35.9); MEAN CELL VOLUME 87.4 fl (80-96); MEAN PLT VOLUME 10.9 fl (7.5-11.1); PLATELET COUNT 181 10^3/uL (134-434); RBC 4.23 M/mm3 (4.00-5.60); RDW 13.5 % (11.9-15.9); WHITE BLOOD COUNT 7.1 K/mm3 (4.0-10.0)
[2022-08-23] MEDS ORDERED: LIDOCAINE 5% TOPICAL PATCH TP PRN (09:30)
[2022-08-23] MEDS: ASPIRIN COATED 81 MG TABLET.EC PO SCH (09:49)
[2022-08-23] MEDS: ENOXAPARIN NA (PORCINE) 40 MG/0.4 ML DISP.SYRIN SQ SCH (09:49)
[2022-08-23] MEDS ORDERED: ENOXAPARIN NA (PORCINE) 40 MG/0.4 ML DISP.SYRIN SQ SCH (10:00)
[2022-08-23] MEDS ORDERED: PIPERACILLIN/TAZOB 3.375 GM 3.375 GM in DEXTROSE 5%-WATER - 50 ML IVPB SCH ×2 (11:00→18:00)
[2022-08-23 11:29] LABS: N-TERMINAL BNP 367.9 pg/ml (5-125)
[2022-08-23] MEDS: METOPROLOL TARTRATE 25 MG TABLET (FP) PO SCH ×2 (11:54→17:40)
[2022-08-23] MEDS: LIDOCAINE 5% TOPICAL PATCH TP SCH (14:30)
[2022-08-24] MEDS: METOPROLOL TARTRATE 25 MG TABLET (FP) PO SCH ×2 (00:09→05:05)
[2022-08-24 06:42] LABS: HEMATOCRIT 36.5 % (35.4-49); HEMOGLOBIN 12.4 GM/dL (11.7-16.9); MCHC 34.1 g/dl (32.0-35.9); PLATELET COUNT 175 10^3/uL (134-434); RBC 4.14 M/mm3 (4.00-5.60); RDW 13.4 % (11.9-15.9); WHITE BLOOD COUNT 7.5 K/mm3 (4.0-10.0)
[2022-08-24 07:12] LABS: BLOOD UREA NITROGEN 18.5 mg/dL (7-18); CALCIUM 9.2 mg/dL (8.5-10.1)
[2022-08-24 07:13] LABS: ALBUMIN 3.2 g/dl (3.4-5.0)
[2022-08-24 07:16] LABS: CREATININE 0.9 mg/dL (0.55-1.3)
[2022-08-24 07:18] LABS: BILIRUBIN,TOTAL 1.3 mg/dL (0.2-1); TOT PROT 6.4 g/dl (6.4-8.2)
[2022-08-24] MEDS: ASPIRIN COATED 81 MG TABLET.EC PO SCH (10:05)
[2022-08-24] MEDS: ENOXAPARIN NA (PORCINE) 40 MG/0.4 ML DISP.SYRIN SQ SCH (10:05)
[2022-08-24] MEDS: LIDOCAINE 5% TOPICAL PATCH TP SCH (10:05)
[2022-08-24] MEDS: LIDOCAINE PATCH REMOVAL MC SCH ×3 (22:24)
[2022-08-25] MEDS: ASPIRIN COATED 81 MG TABLET.EC PO SCH (09:52)
[2022-08-25] MEDS: ENOXAPARIN NA (PORCINE) 40 MG/0.4 ML DISP.SYRIN SQ SCH (09:53)
[2022-08-25] MEDS: LIDOCAINE 5% TOPICAL PATCH TP SCH (09:53)
[2022-08-25 10:54] VITALS: BP 114/68; PULSE 93; RESP 18; TEMP 99.1
== END 2022-08-25 15:04 | disposition home or self-care (01) | DRG 201 ==
LOC: JER 03:17 → JERBED 07:45 → J4W 12:23
PROVIDERS: ADMIT Internal Medicine; ATTEND Internal Medicine
DX: I48.91 Unspecified atrial fibrillation (principal); E66.01 Morbid (severe) obesity due to excess calories; Z68.39 Body mass index [BMI] 39.0-39.9, adult; M54.9 Dorsalgia, unspecified; K57.32 Diverticulitis of large intestine without perforation or abscess without bleeding; G47.33 Obstructive sleep apnea (adult) (pediatric)
CPT/HCPCS: 0241U-QW; 36415; 71046-TC-FY; 71275-TC; 74174-TC; 80048; 80053; 81003; 83735; 83880; 84100; 84439; 84443; 84484; 85025; 85027; 85610; 85730; 86140; 87086; 93005; 93010; 93306-TC; 99285-25

== ENCOUNTER 2024-05-28 18:47 | Inpatient (IN) | payer OTHER ==
[2024-05-28 18:58] VITALS: BMI 47.5
[2024-05-28 21:05] LABS: BASO % 0.6 % (0-2.0); EOS % 1.3 % (0-4.5); HEMATOCRIT 42.9 % (35.4-49); HEMOGLOBIN 14.4 GM/dL (11.7-16.9); LYMPH % 28.7 % (8-40); MCH 30.6 pg (25.7-33.7); MCHC 33.5 g/dl (32.0-35.9); MEAN CELL VOLUME 91.3 fl (80-96); MONO % 11.5 % (3.8-10.2); NEUT % 57.9 % (42.8-82.8); PLATELET COUNT 230 10^3/uL (134-434); WHITE BLOOD COUNT 9.4 K/mm3 (4.0-10.0)
[2024-05-28 21:12] LABS: INR 1.06 (0.83-1.09); PROTHROMBIN TIME (PATIENT) 12.2 SEC (9.7-13.0)
[2024-05-28 21:15] LABS: ACTIVATED PTT 35.7 SECONDS (25.2-36.5)
[2024-05-28 21:31] LABS: POTASSIUM 4.1 mmol/L (3.5-5.1)
[2024-05-28 21:32] LABS: BLOOD UREA NITROGEN 22.8 mg/dL (7-18)
[2024-05-28 21:35] LABS: ALBUMIN 3.4 g/dl (3.4-5.0)
[2024-05-28 21:40] LABS: BILIRUBIN,TOTAL 0.6 mg/dL (0.2-1); TOT PROT 6.7 g/dl (6.4-8.2)
[2024-05-28 21:43] LABS: N-TERMINAL BNP 6.1 pg/ml (5-125)
[2024-05-28] MEDS: VANCOMYCIN 1,000 MG in DEXTROSE 5%-WATER - 250 ML IVPB ONE (23:54)
[2024-05-28] MEDS ORDERED: VANCOMYCIN 1 GM PREMIX (F) 1 GM/200 ML BAG ONE (23:55)
[2024-05-29] MEDS: APIXABAN 5 MG TABLET PO SCH (01:38)
[2024-05-29] MEDS ORDERED: PIPERACILLIN/TAZOB 3.375 GM 3.375 GM in DEXTROSE 5%-WATER - 50 ML IVPB SCH (03:00)
[2024-05-29] MEDS: FUROSEMIDE 40 MG/4 ML INJECTABLE VIAL IVPUSH SCH (03:27)
[2024-05-29] MEDS: SACUBITRIL/VALSARTAN 24 MG-26 MG TABLET PO SCH (03:28)
[2024-05-29] MEDS: PIPERACILLIN/TAZOB 3.375 GM 50 ML IVPB SCH ×2 (03:51→18:55)
[2024-05-29] MEDS: VANCOMYCIN/WATER 1250 MG 1,250 MG/250 ML BAG IVPB SCH (18:54)
[2024-05-30] MEDS: VANCOMYCIN HCL IN 5 % DEXTROSE 1,250 MG/250 ML BAG IV SCH (06:23)
[2024-05-30 09:20] LABS: BASO % 0.4 % (0-2.0); EOS % 1.2 % (0-4.5); HEMATOCRIT 44.1 % (35.4-49); HEMOGLOBIN 15.2 GM/dL (11.7-16.9); LYMPH % 21.7 % (8-40); MCH 31.4 pg (25.7-33.7); MCHC 34.4 g/dl (32.0-35.9); MEAN CELL VOLUME 91.1 fl (80-96); MEAN PLT VOLUME 9.3 fl (7.5-11.1); NEUT % 69.7 % (42.8-82.8); PLATELET COUNT 231 10^3/uL (134-434); RBC 4.83 M/mm3 (4.00-5.60); RDW 13.1 % (11.9-15.9); WHITE BLOOD COUNT 8.3 K/mm3 (4.0-10.0)
[2024-05-30 09:41] LABS: POTASSIUM 3.6 mmol/L (3.5-5.1)
[2024-05-30 09:51] LABS: CALCIUM 9.4 mg/dL (8.5-10.1)
[2024-05-30 09:52] LABS: ALBUMIN 3.8 g/dl (3.4-5.0); MAGNESIUM 2.2 mg/dL (1.8-2.4)
[2024-05-30 09:55] LABS: CREATININE 1.1 mg/dL (0.55-1.3); PHOSPHOROUS 3.6 mg/dL (2.5-4.9)
[2024-05-30 09:56] LABS: BILIRUBIN,TOTAL 1.5 mg/dL (0.2-1); TOT PROT 7.5 g/dl (6.4-8.2)
[2024-05-30] MEDS: VANCOMYCIN/WATER 1250 MG 1,250 MG/250 ML BAG IVPB SCH (10:55)
[2024-05-31] MEDS: ONDANSETRON 4 MG/2 ML VIAL IVPUSH PRN (16:16)
[2024-05-31] MEDS: ACETAMINOPHEN 1000 MG/100 ML BAG IVPB PRN (17:13)
[2024-06-01 09:39] LABS: BASO % 0.6 % (0-2.0); EOS % 0.3 % (0-4.5); HEMOGLOBIN 13.9 GM/dL (11.7-16.9); LYMPH % 8.6 % (8-40); MCH 30.2 pg (25.7-33.7); MCHC 32.4 g/dl (32.0-35.9); MEAN CELL VOLUME 93.2 fl (80-96); MEAN PLT VOLUME 9.8 fl (7.5-11.1); MONO % 14.3 % (3.8-10.2); NEUT % 76.2 % (42.8-82.8); PLATELET COUNT 162 10^3/uL (134-434); RBC 4.61 M/mm3 (4.00-5.60); RDW 12.9 % (11.9-15.9); WHITE BLOOD COUNT 5.8 K/mm3 (4.0-10.0)
[2024-06-01 10:00] LABS: POTASSIUM 3.5 mmol/L (3.5-5.1)
[2024-06-01 10:02] LABS: ALBUMIN 3.6 g/dl (3.4-5.0); CALCIUM 8.8 mg/dL (8.5-10.1); MAGNESIUM 2.2 mg/dL (1.8-2.4)
[2024-06-01 10:03] LABS: BLOOD UREA NITROGEN 18.7 mg/dL (7-18)
[2024-06-01 10:06] LABS: CREATININE 1.3 mg/dL (0.55-1.3)
[2024-06-01 10:07] LABS: TOT PROT 7.1 g/dl (6.4-8.2)
[2024-06-01] MEDS: guaiFENesin 200 MG/10 ML 10 ML UNIT-DOSE CUPS PO PRN (18:51)
[2024-06-02] MEDS: KETOROLAC TROMETHAMINE 15 MG/ML VIAL IM ONE (00:14)
[2024-06-02] MEDS: BENZOCAINE/MENTH/CETYLPYRD CL 1 EACH LOZENGE MM PRN (00:14)
[2024-06-02 03:26] VITALS: RESP 20
[2024-06-02] MEDS: FUROSEMIDE 40 MG TABLET (FP) PO SCH (09:26)
[2024-06-02 10:29] LABS: POTASSIUM 3.3 mmol/L (3.5-5.1)
[2024-06-02 10:35] LABS: ALBUMIN 3.5 g/dl (3.4-5.0); BLOOD UREA NITROGEN 20.2 mg/dL (7-18); CALCIUM 8.6 mg/dL (8.5-10.1)
[2024-06-02 10:39] LABS: CREATININE 1.1 mg/dL (0.55-1.3)
[2024-06-02 10:40] LABS: BILIRUBIN,TOTAL 0.9 mg/dL (0.2-1)
[2024-06-02] MEDS: FUROSEMIDE 40 MG/4 ML INJECTABLE VIAL IVPUSH SCH (14:18)
[2024-06-02] MEDS: POTASSIUM CHLORIDE ORAL LIQUID 20 MEQ/15 ML PO SCH (15:34)
[2024-06-02] MEDS: OSELTAMIVIR PHOSPHATE 75 MG CAPSULE PO SCH (15:34)
[2024-06-02] MEDS: CEPHALEXIN MONOHYDRATE 500 MG CAPSULE (UD) PO SCH (22:29)
[2024-06-03 09:18] LABS: POTASSIUM 3.6 mmol/L (3.5-5.1)
[2024-06-03 09:22] LABS: CALCIUM 8.6 mg/dL (8.5-10.1)
[2024-06-03 09:23] LABS: ALBUMIN 3.8 g/dl (3.4-5.0); BLOOD UREA NITROGEN 20.3 mg/dL (7-18)
[2024-06-03 09:26] LABS: CREATININE 0.9 mg/dL (0.55-1.3)
[2024-06-03 09:27] LABS: BILIRUBIN,TOTAL 1.1 mg/dL (0.2-1); TOT PROT 7.4 g/dl (6.4-8.2)
[2024-06-03 12:11] VITALS: TEMP 99.1
[2024-06-03 14:36] VITALS: BP 116/68; PULSE 83
== END 2024-06-03 17:21 | disposition home or self-care (01) | DRG 383 ==
LOC: JER 18:47 → JERBED 23:20 → J6S 05-29 01:55 → J7W 06-02 15:19
PROVIDERS: ADMIT Internal Medicine
DX: L03.115 Cellulitis of right lower limb (principal); I48.0 Paroxysmal atrial fibrillation; J10.1 Influenza due to other identified influenza virus with other respiratory manifestations; I50.32 Chronic diastolic (congestive) heart failure; I11.0 Hypertensive heart disease with heart failure; L03.116 Cellulitis of left lower limb; I87.2 Venous insufficiency (chronic) (peripheral); E66.01 Morbid (severe) obesity due to excess calories; Z68.42 Body mass index [BMI] 45.0-49.9, adult
CPT/HCPCS: 0241U-QW; 36415; 71045-TC-FY; 80048; 80053; 83735; 83880; 84100; 84484; 85025; 85610; 85730; 87070; 87081; 87205; 93005; 93010; 93306-TC; 93970-TC; 97116-GP; 97161-GP; 99285-25; J0131